=== PATIENT | male | born 1985 ===

== ENCOUNTER 2020-06-01 08:38 | Outpatient (REF) | payer BC, SELFPAY ==
--- NOTE | 2020-06-01 09:12 | XR_ITS ---
EXAMINATION: XR ABDOMEN KUB CLINICAL INDICATION: Pain on left side COMPARISON: CT abdomen pelvis 07/14/2019. TECHNIQUE: AP view of the abdomen. FINDINGS: No discrete renal calcifications or calcifications along the course of the ureters are seen on this exam. The bowel gas pattern is nonobstructive. No acute osseous abnormality. XR/XR KUB IMPRESSION: No abnormal calcifications are seen.
[2020-06-01 09:15] LABS: MANUAL DIFF FLAG NO
[2020-06-01 09:16] LABS: Basophils Percent Auto 0.3 % (0-2); Eosinophils Percent Auto 0.3 % (0-4); Hematocrit 47.2 % (42-52); Imm Gran Abs Auto 0.03 X10*3/uL (0.00-0.03); Imm Gran Pct Auto 0.4 % (0.0-0.4); Lymphocytes Absolute Auto 2.4 X10*3/uL (1.2-4.9); Lymphocytes Percent Auto 31.5 % (20-40); Mean Corpuscular HGB Conc 31.8 g/dl (31.0-36.0); Mean Corpuscular Hemoglobin 27.4 pg (27.0-33.0); Mean Corpuscular Volume 86.3 fL (80-98); Mean Platelet Volume 9.8 fL (9.4-12.4); Monocytes Absolute Auto 0.6 X10*3/uL (0.1-1.2); Monocytes Percent Auto 7.9 % (2-11); Neutrophils Absolute Auto 4.6 X10*3/uL (2.0-8.3); Neutrophils Percent Auto 59.6 % (45-73); Platelet Count 281 X10*3/uL (160-400); Red Blood Count 5.47 X10*6/uL (4.60-5.80); Red Cell Distribution Width 13.4 % (11.0-16.0); White Blood Count 7.6 X10*3/uL (4.8-10.8)
[2020-06-01 09:40] LABS: Alanine Aminotransferase 72 U/L (0-40); Albumin Level 4.6 g/dL (3.5-5.0); Alkaline Phosphatase 91 U/L (39-117); Anion Gap 12 (12-20); Aspartate Amino Transferase 35 U/L (5-37); Bilirubin Total 0.6 mg/dL (0.0-1.0); Blood Urea Nitrogen 11 mg/dL (9-16); Calcium 8.2 mg/dL (8.4-10.2); Carbon Dioxide 25 mmol/L (22-29); Chloride 106 mmol/L (96-108); Cholesterol 218 mg/dL; Estimated Glomerular Filt Rate > 60; Glucose Fasting 104 mg/dL (60-99); HDL Cholesterol 38 mg/dL; LDL Cholesterol Calculated 161 mg/dl; Potassium 4.3 mmol/l (3.3-5.1); Sodium 139 mmol/L (135-145); Total Protein 8.1 g/dL (6.5-8.0); Triglycerides 97 mg/dL
[2020-06-01 10:00] LABS: TSH reflex Free T4 0.94 mIU/mL (0.32-4.0)
== END 2020-06-01 08:39 | disposition home or self-care (01) ==
LOC: HO.LAB 08:38
PROVIDERS: PCP Internal Medicine; Visit Provider Internal Medicine
DX: R10.9 Unspecified abdominal pain (principal); Z00.00 Encounter for general adult medical examination without abnormal findings; R03.0 Elevated blood-pressure reading, without diagnosis of hypertension; E66.01 Morbid (severe) obesity due to excess calories; Z68.41 Body mass index [BMI] 40.0-44.9, adult
CPT/HCPCS: 36415; 74018; 80053; 80061; 84443; 85025

== ENCOUNTER 2020-06-03 17:33 | Outpatient (REF) | payer BC, SELFPAY ==
[2020-06-03 17:45] LABS: Glucose Urine UA NEG (NEG); Leukocyte Esterase Urine NEG (NEG); Nitrite Urine NEG (NEG); Specific Gravity - Urine >= 1.030 (1.005-1.025); Urine Blood NEG (NEG); Urine Ketones NEG (NEG); Urine Protein NEG (NEG-TRACE)
[2020-06-03 17:50] LABS: Appearance Urine CLEAR; Color Urine YELLOW
== END 2020-06-03 17:34 | disposition home or self-care (01) ==
LOC: HO.LNP 17:33
PROVIDERS: Visit Provider Internal Medicine
DX: R10.9 Unspecified abdominal pain (principal); Z00.00 Encounter for general adult medical examination without abnormal findings; R03.0 Elevated blood-pressure reading, without diagnosis of hypertension; E66.01 Morbid (severe) obesity due to excess calories; Z68.41 Body mass index [BMI] 40.0-44.9, adult
CPT/HCPCS: 81003

== ENCOUNTER 2020-07-09 09:36 | Outpatient (REF) | payer BC, SELFPAY | END 2020-07-09 09:37 | disposition home or self-care (01) | LOC: HO.LAB 09:36 | PROVIDERS: Visit Provider Internal Medicine | DX: Z20.828 Contact with and (suspected) exposure to other viral communicable diseases (principal) | CPT/HCPCS: C9803; U0003 ==

== ENCOUNTER 2020-08-23 10:56 | Outpatient (REF) | payer BC, SELFPAY | END 2020-08-23 10:57 | disposition home or self-care (01) | LOC: HO.LAB 10:56 | PROVIDERS: PCP Internal Medicine; Visit Provider Internal Medicine | DX: Z20.822 Contact with and (suspected) exposure to COVID-19 (principal) | CPT/HCPCS: 36415; C9803; U0003 ==

== ENCOUNTER 2020-09-02 14:05 | Outpatient (REF) | payer BC, SELFPAY | END 2020-09-02 14:06 | disposition home or self-care (01) | LOC: HO.LAB 14:05 | PROVIDERS: Visit Provider Internal Medicine | DX: Z20.822 Contact with and (suspected) exposure to COVID-19 (principal) | CPT/HCPCS: 36415; C9803; U0003; U0005 ==

== ENCOUNTER 2020-12-16 03:30 | Emergency (ER) | payer BC, SELFPAY ==
--- NOTE | ~2020-12-16 | CT_ITS ---
EXAMINATION: CT ABDOMEN AND PELVIS WITHOUT CONTRAST CLINICAL INFORMATION: Left flank pain, history of kidney stones COMPARISON: 07/14/2019 TECHNIQUE: Multidetector volumetric imaging was performed from the superior aspect of the liver through the pubic symphysis. Sagittal and coronal reformatted images were obtained on the technologist's workstation. This CT examination was performed using dose optimization techniques as appropriate, variously including the following: *Automated exposure control *Adjustment of mA and/or kV according to patient size (this includes techniques or standardized protocols for targeted exams where dose is matched to indication/reason for exam; i.e. extremities or head) *Use of iterative reconstruction technique DLP: 1194 mGy-cm FINDINGS: LUNG BASES: The visualized lung bases are unremarkable. LIVER, GALLBLADDER, AND BILIARY TREE: The liver demonstrates hypoattenuation consistent with steatosis. No biliary ductal dilatation is present. There is suggestion of cholelithiasis. PANCREAS: Unremarkable. SPLEEN: Unremarkable. ADRENAL GLANDS: Unremarkable. KIDNEYS AND URETERS: There is a 3 mm calculus at the left ureterovesicular junction with mild hydronephrosis. Several scattered punctate calculi are present in the left kidney. Tiny calculus is also noted in the lower right kidney, without right-sided hydronephrosis. BLADDER: Unremarkable. GASTROINTESTINAL TRACT: The small and large bowel are unremarkable. The appendix is unremarkable. No free fluid or free air is seen. ABDOMINAL WALL: No significant hernia is appreciated. LYMPH NODES: Normal. VASCULAR: Unremarkable. PELVIC VISCERA: Unremarkable. OSSEOUS STRUCTURES: Unremarkable. CT/CT abdomen pelvis wo con IMPRESSION: 1. Left ureterovesicular junction calculus measuring 3 mm with mild hydronephrosis. 2. Tiny bilateral renal calculi. 3. Possible gallstones, which could be better assessed with ultrasound. 4. Hepatic steatosis.
[2020-12-16 04:10] VITALS: BP 154/101; PULSE 101; RESP 18; TEMP 37.1; O2SAT 98; BMI 45.0
--- NOTE | 2020-12-16 04:44 | ED.ABDPAIN ---
HPI - Abdominal Pain General Chief Complaint: Abdominal Pain Stated Complaint: left side abdominal pain Time Seen by Provider: 12/16/20 04:38 Source: patient Mode of arrival: ambulatory Limitations: no limitations History of Present Illness HPI narrative: Patient comes to the emergency room complaining of left flank pain radiating towards the groin and left lower quadrant. Patient states that it started approximately 3 hours ago. Patient states that his urine looks darker. Patient has had kidney stones in the past and states that the pain is very similar. Patient denies vomiting, no diarrhea, complaining of slight nausea, no fever chills, no dysuria. MD elicited complaint: flank pain Related Data Previous Rx's Medication Instructions Recorded albuterol sulfate 90 mcg/actuation 1 inh INHALATION QID PRN 30 Days 09/03/20 aerosol inhaler #8.5 g ketorolac 10 mg PO TID PRN 5 Days #10 tab 12/16/20 ondansetron HCl [Zofran] 4 mg PO Q6H PRN #14 tab 12/16/20 oxycodone-acetaminophen [Percocet] 1 tab PO Q6H PRN #10 tab 12/16/20 prednisone 20 mg PO DAILY #4 tab 12/16/20 tamsulosin 0.4 mg PO DAILY #14 cap 12/16/20 Allergies Allergy/AdvReac Type Severity Reaction Status Date / Time No Known Allergies Allergy Verified 12/16/20 04:51 Review of Systems Review of Systems Constitutional : No Weight loss, No Fever, No Chills, No Night Sweats, No Fatigue, No Malaise ENT/Mouth : No Hearing loss, No Ear Pain, No Nasal Congestion, No Sinus Pain, No Hoarseness, No sore throat, No Rhinorrhea, No Swallowing Difficulty Eyes: No Eye Pain, No Swelling, No Redness, No Foreign Body, No Discharge, No Vision Changes Cardiovascular : No Chest Pain, No SOB, No Dyspnea on Exertion, No Orthopnea, No Edema, No Palpitations Respiratory : No Cough, No Sputum, No Wheezing, No Smoke Exposure, No Dyspnea Gastrointestinal : Mild Nausea, No Vomiting, No Diarrhea, No Constipation, No abdominal Pain, No Hematochezia, No Melena, complaining flank pain on the left side Genitourinary :no Dysuria, No Urinary Frequency, No Hematuria, No Urinary Incontinence, No Urgency, No Flank Pain, No Urinary Flow Changes, No Hesitancy Musculoskeletal : No joint pain, No Myalgias, No Joint Swelling Skin : No Skin Lesions, No rash Neuro : No Weakness, No Numbness, No Paresthesias, No Loss of Consciousness, No Dizziness, No Headache Psych : No Anxiety/Panic, No Depression, No SI/HI/AH/VH, No Social Issues, Heme/Lymph: No Bruising, No Bleeding,No Lymphadenopathy Endocrine : No Polyuria, No Polydipsia, No Temperature Intolerance Physical Exam Vital Signs: Vital Signs: Last Vital Signs Temp 98.8 F 12/16/20 04:10 Pulse 88 12/16/20 06:42 Resp 17 12/16/20 06:42 BP 144/90 H 12/16/20 06:42 Pulse Ox 98 12/16/20 06:42 Body Mass Index 45.0 Appearance: Alert. Oriented X3. No acute distress. Eyes: Pupils equal, round and reactive to light. ENT: Pharynx normal. Neck: Normal inspection. Neck supple. No lymph nodes noted. No crepitus CVS: Normal heart rate and rhythm. Pulses normal. Normal S1 and S2 Respiratory: No respiratory distress. Breath sounds normal. No Wheezing. No rales Abdomen: Soft and nontender. No rigidity. No distention. Back: No thoracic or lumbar pain, positive CVA tenderness on the left side Skin: Skin warm and dry. Normal skin color. Normal skin turgor. Extremities: No lower extremity edema. No lower extremity edema. No Lacerations. No Rash Neuro: Oriented X 3. No motor deficit. No sensory deficit. Moving all extermities. No slurred speech. Course Course Course Narrative: I discussed with the patient that he does have a 3 mm kidney stone. Patient instructed to follow-up with his primary care physician and Urology. No UTI MDM - Abdominal Pain Lab Data Result diagrams: 12/16/20 04:47 12/16/20 04:47 Labs: Lab Results 12/16/20 12/16/20 12/16/20 Range/Units 04:47 04:47 04:47 WBC 8.7 (4.8-10.8) X10*3/uL RBC 5.33 (4.60-5.80) X10*6/uL Hgb 14.7 (14.0-18.0) g/dl Hct 45.6 (42-52) % MCV 85.6 (80-98) fL MCH 27.6 (27.0-33.0) pg MCHC 32.2 (31.0-36.0) g/dl RDW 13.7 (11.0-16.0) % Plt Count 276 (160-400) X10*3/uL MPV 10.0 (9.4-12.4) fL Immature Gran % (Auto) 0.5 H (0.0-0.4) % Neut % (Auto) 65.1 (45-73) % Lymph % (Auto) 25.1 (20-40) % [place] % (Auto) 8.6 (2-11) % Eos % (Auto) 0.5 (0-4) % Baso % (Auto) 0.2 (0-2) % Lymph # (Auto) 2.2 (1.2-4.9) X10*3/uL [place] # (Auto) 0.8 (0.1-1.2) X10*3/uL Eos # (Auto) 0.0 (0.0-0.4) X10*3/uL Baso # (Auto) 0.0 (0.0-0.2) X10*3/uL Abs Immat Gran (auto) 0.04 H (0.00-0.03) X10*3/uL Absolute Neuts (auto) 5.7 (2.0-8.3) X10*3/uL Absolute Nucleated RBC 0.000 (0.0-0.012) X10*3/uL Nucleated RBC % (auto) 0.0 (0.0-0.2) /100WBC Hold Blue Top SEE NOTE Sodium 140 (135-145) mmol/L Potassium 4.6 (3.3-5.1) mmol/L Chloride 108 (96-108) mmol/L Carbon Dioxide 24 (22-29) mmol/L Anion Gap 13 (12-20) BUN 16 (9-16) mg/dL Creatinine 0.86 (0.5-1.4) mg/dL Estim Creat Clear Calc 167.3 Estimated GFR > 60 Random Glucose 118 H (60-115) mg/dL Calcium 8.7 D (8.4-10.2) mg/dL Total Bilirubin 0.2 (0.0-1.0) mg/dL AST 27 (5-37) U/L ALT 61 H (0-40) U/L Alkaline Phosphatase 74 (39-117) U/L Total Protein 7.6 (6.5-8.0) g/dL Albumin 4.3 (3.5-5.0) g/dL Lipase (8-78) U/L 12/16/20 Range/Units 04:48 WBC (4.8-10.8) X10*3/uL RBC (4.60-5.80) X10*6/uL Hgb (14.0-18.0) g/dl Hct (42-52) % MCV (80-98) fL MCH (27.0-33.0) pg MCHC (31.0-36.0) g/dl RDW (11.0-16.0) % Plt Count (160-400) X10*3/uL MPV (9.4-12.4) fL Immature Gran % (Auto) (0.0-0.4) % Neut % (Auto) (45-73) % Lymph % (Auto) (20-40) % [place] % (Auto) (2-11) % Eos % (Auto) (0-4) % Baso % (Auto) (0-2) % Lymph # (Auto) (1.2-4.9) X10*3/uL [place] # (Auto) (0.1-1.2) X10*3/uL Eos # (Auto) (0.0-0.4) X10*3/uL Baso # (Auto) (0.0-0.2) X10*3/uL Abs Immat Gran (auto) (0.00-0.03) X10*3/uL Absolute Neuts (auto) (2.0-8.3) X10*3/uL Absolute Nucleated RBC (0.0-0.012) X10*3/uL Nucleated RBC % (auto) (0.0-0.2) /100WBC Hold Blue Top Sodium (135-145) mmol/L Potassium (3.3-5.1) mmol/L Chloride (96-108) mmol/L Carbon Dioxide (22-29) mmol/L Anion Gap (12-20) BUN (9-16) mg/dL Creatinine (0.5-1.4) mg/dL Estim Creat Clear Calc Estimated GFR Random Glucose (60-115) mg/dL Calcium (8.4-10.2) mg/dL Total Bilirubin (0.0-1.0) mg/dL AST (5-37) U/L ALT (0-40) U/L Alkaline Phosphatase (39-117) U/L Total Protein (6.5-8.0) g/dL Albumin (3.5-5.0) g/dL Lipase 32 (8-78) U/L Imaging Data CT scan - abdomen: Radiologist's impression: FINDINGS: LUNG BASES: The visualized lung bases are unremarkable. LIVER, GALLBLADDER, AND BILIARY TREE: The liver demonstrates hypoattenuation consistent with steatosis. No biliary ductal dilatation is present. There is suggestion of cholelithiasis. PANCREAS: Unremarkable. SPLEEN: Unremarkable. ADRENAL GLANDS: Unremarkable. KIDNEYS AND URETERS: There is a 3 mm calculus at the left ureterovesicular junction with mild hydronephrosis. Several scattered punctate calculi are present in the left kidney. Tiny calculus is also noted in the lower right kidney, without right-sided hydronephrosis. BLADDER: Unremarkable. GASTROINTESTINAL TRACT: The small and large bowel are unremarkable. The appendix is unremarkable. No free fluid or free air is seen. ABDOMINAL WALL: No significant hernia is appreciated. LYMPH NODES: Normal. VASCULAR: Unremarkable. PELVIC VISCERA: Unremarkable. OSSEOUS STRUCTURES: Unremarkable. CT/CT abdomen pelvis wo con IMPRESSION: 1. Left ureterovesicular junction calculus measuring 3 mm with mild hydronephrosis. 2. Tiny bilateral renal calculi. 3. Possible gallstones, which could be better assessed with ultrasound. 4. Hepatic steatosis. Discharge Plan Discharge Clinical Impression: Ureterolithiasis Patient Disposition: Home, Self-Care Instructions: Kidney Stones (ED) Additional Instructions: Please follow-up with your primary care physician tomorrow. If you have any worsening or new symptoms, please return to the emergency room or call 911 Prescriptions: New prednisone 20 mg tablet 20 mg PO DAILY Qty: 4 RF: 0 tamsulosin 0.4 mg capsule 0.4 mg PO DAILY Qty: 14 RF: 0 ondansetron HCl [Zofran] 4 mg tablet 4 mg PO Q6H PRN (Reason: nausea and vomiting) Qty: 14 RF: 0 ketorolac 10 mg tablet 10 mg PO TID PRN (Reason: pain) 5 Days Qty: 10 RF: 0 oxycodone-acetaminophen [Percocet] 5-325 mg tablet 1 tab PO Q6H PRN (Reason: pain) Qty: 10 RF: 0 No Action albuterol sulfate 90 mcg/actuation HFA aerosol inhaler 1 inh inhalation QID PRN (Reason: shortness of breath or wheezing) 30 Days Qty: 8.5 RF: 0 PMFSH Past Medical History Medical History (Updated 12/16/20 @ 06:52 by Mona Denney MD) Morbid obesity with BMI of 40.0-44.9, adult Nephrolithiasis Surgical History No pertinent past surgical history Family History Family History Father No problems noted. Mother Medical history unknown Social History Social History Smoking Status: Never smoker Advance Directives: No Advance Directives Information Provided: No
[2020-12-16 04:53] LABS: Basophils Percent Auto 0.2 % (0-2); Eosinophils Percent Auto 0.5 % (0-4); Hematocrit 45.6 % (42-52); Hemoglobin 14.7 g/dl (14.0-18.0); Imm Gran Abs Auto 0.04 X10*3/uL (0.00-0.03); Imm Gran Pct Auto 0.5 % (0.0-0.4); Lymphocytes Absolute Auto 2.2 X10*3/uL (1.2-4.9); Lymphocytes Percent Auto 25.1 % (20-40); MANUAL DIFF FLAG NO; Mean Corpuscular HGB Conc 32.2 g/dl (31.0-36.0); Mean Corpuscular Hemoglobin 27.6 pg (27.0-33.0); Mean Corpuscular Volume 85.6 fL (80-98); Monocytes Absolute Auto 0.8 X10*3/uL (0.1-1.2); Monocytes Percent Auto 8.6 % (2-11); Neutrophils Absolute Auto 5.7 X10*3/uL (2.0-8.3); Neutrophils Percent Auto 65.1 % (45-73); Platelet Count 276 X10*3/uL (160-400); Red Blood Count 5.33 X10*6/uL (4.60-5.80); Red Cell Distribution Width 13.7 % (11.0-16.0); White Blood Count 8.7 X10*3/uL (4.8-10.8)
[2020-12-16] MEDS: ondansetron HCL 4 MG/2 ML VIAL IVPUSH (04:53)
[2020-12-16] MEDS: Ketorolac Tromethamine 30 MG/ML VIAL IVPUSH (04:53)
[2020-12-16 05:23] LABS: Lipase 32 U/L (8-78)
[2020-12-16 05:23] LABS: Alanine Aminotransferase 61 U/L (0-40); Albumin Level 4.3 g/dL (3.5-5.0); Alkaline Phosphatase 74 U/L (39-117); Anion Gap 13 (12-20); Aspartate Amino Transferase 27 U/L (5-37); Bilirubin Total 0.2 mg/dL (0.0-1.0); Blood Urea Nitrogen 16 mg/dL (9-16); Calcium 8.7 mg/dL (8.4-10.2); Carbon Dioxide 24 mmol/L (22-29); Chloride 108 mmol/L (96-108); Creatinine Clr Calc Pharmacy 167.3; Estimated Glomerular Filt Rate > 60; Glucose Random 118 mg/dL (60-115); Potassium 4.6 mmol/L (3.3-5.1); Sodium 140 mmol/L (135-145); Total Protein 7.6 g/dL (6.5-8.0)
[2020-12-16 06:42] VITALS: BP 144/90; PULSE 88; RESP 17; O2SAT 98
[2020-12-16 07:22] VITALS: BP 112/57; PULSE 86; RESP 16; TEMP 37.1; O2SAT 96
[2020-12-16] MEDS: Morphine Sulfate 2 MG/ML CARTRIDGE IVPUSH (07:23)
[2020-12-16 07:54] VITALS: BP 106/61
== END 2020-12-16 08:49 | disposition home or self-care (01) ==
PROVIDERS: Emergency Provider Emergency Medicine; PCP Internal Medicine
DX: N20.1 Calculus of ureter (principal); R10.32 Left lower quadrant pain; Z79.899 Other long term (current) drug therapy
CPT/HCPCS: 36415; 74176; 80053; 83690; 85025; 96374; 96375; 99284; J1885; J2270; J2405

== ENCOUNTER 2021-06-09 11:05 | Outpatient (REF) | payer BC, SELFPAY ==
[2021-06-09 11:57] LABS: Hematocrit 47.6 % (42.0-52.0); Hemoglobin 15.2 g/dl (14.0-18.0); Mean Corpuscular HGB Conc 31.9 g/dl (31.0-36.0); Mean Corpuscular Hemoglobin 27.4 pg (27.0-33.0); Mean Corpuscular Volume 85.9 fL (80.0-98.0); Mean Platelet Volume 10.2 fL (9.4-12.4); Platelet Count 296 X10*3/uL (160-400); Red Blood Count 5.54 X10*6/uL (4.60-5.80); Red Cell Distribution Width 13.7 % (11.0-16.0); White Blood Count 10.2 X10*3/uL (4.8-10.8)
[2021-06-09 12:04] LABS: Estimated Average Glucose 120 mg/dL; Hemoglobin A1c % 5.8 %
[2021-06-09 12:41] LABS: Alanine Aminotransferase 64 U/L (0-40); Albumin Level 4.5 g/dL (3.5-5.0); Alkaline Phosphatase 83 U/L (39-117); Anion Gap 13 (12-20); Aspartate Amino Transferase 27 U/L (5-37); Bilirubin Total 0.3 mg/dL (0.0-1.0); Blood Urea Nitrogen 12 mg/dL (9-16); Calcium 9.1 mg/dL (8.4-10.2); Carbon Dioxide 27 mmol/L (22-29); Chloride 104 mmol/L (96-108); Cholesterol 226 mg/dL; Estimated Glomerular Filt Rate > 60; Glucose Fasting 82 mg/dL (60-99); HDL Cholesterol 40 mg/dL; LDL Cholesterol Calculated 163 mg/dl; Potassium 4.6 mmol/L (3.3-5.1); Sodium 139 mmol/L (135-145); Total Protein 8.2 g/dL (6.5-8.0); Triglycerides 117 mg/dL
[2021-06-09 12:50] LABS: TSH reflex Free T4 2.36 uIU/mL (0.32-4.0)
== END 2021-06-09 11:06 | disposition home or self-care (01) ==
LOC: HO.LAB 11:05
PROVIDERS: PCP Internal Medicine; Visit Provider Physician Assistant
DX: E66.01 Morbid (severe) obesity due to excess calories (principal); Z13.1 Encounter for screening for diabetes mellitus; Z68.41 Body mass index [BMI] 40.0-44.9, adult; Z13.29 Encounter for screening for other suspected endocrine disorder
CPT/HCPCS: 36415; 80053; 80061; 83036; 84443; 85027

== ENCOUNTER 2021-11-18 17:28 | Emergency (ER) | payer BC, OTHER, SELFPAY ==
[2021-11-18 18:04] VITALS: BP 154/93; PULSE 119; RESP 20; TEMP 37.2; O2SAT 98; BMI 44.3
--- NOTE | 2021-11-18 20:38 | ED.SKABFB ---
HPI - Skin/Abscess/Foreign Bdy General Chief complaint: Skin/Abscess/Foreign Body Stated complaint: cyst in coccyzx area Time Seen by Provider: 11/18/21 20:38 Source: patient Mode of arrival: ambulatory Limitations: no limitations History of Present Illness HPI narrative: 36 y/o male with history of obesity & asthma presents to the ER for evaluation of an abscess on his upper right buttock that started about 4 days ago. He reports history of similar episode about a year ago that went away on its own. He reports the area is exquisitely tender, has been worsening over the last couple of days. He has been taking amoxicillin with no improvement in the pain, redness or swelling. He denies any drainage from the area. He denies any fever chills nausea or vomiting. He is not diabetic. He denies any trauma to the area. MD complaint: abscess/boil Onset (ago): day(s) (4) Tetanus up to date: yes Location: buttocks Severity: severe Severity scale (1-10): 9 Quality: aching Pain Consistency: constant Relieving factors: other (Lying on his stomach) Exacerbating factors: palpation and other (Sitting down) Context: none Treatments prior to arrival: antibiotic Related Data Previous Rx's Medication Instructions Recorded albuterol sulfate 90 mcg/actuation 1 inh INHALATION QID PRN 30 Days 07/02/21 aerosol inhaler #8.5 g cephalexin 500 mg capsule 500 mg PO Q6H 7 Days #28 cap 11/18/21 doxycycline monohydrate 100 mg 100 mg PO BID #14 cap 11/18/21 capsule hydrocodone 5 mg-acetaminophen 325 1 tab PO TID PRN #7 tab 11/18/21 mg tablet Allergies Allergy/AdvReac Type Severity Reaction Status Date / Time No Known Allergies Allergy Verified 06/09/21 10:33 Review of Systems Review of Systems: Constitutional: No Fever, No Chills Cardiovascular: No Chest Pain, No SOB Gastrointestinal: No Nausea, No Vomiting, No Diarrhea, No abdominal Pain Musculoskeletal: No joint pain, No Myalgias Skin: + Skin Lesions, No rash, +redness Neuro: No Weakness, No Numbness, No Dizziness, No Headache Psych: + Anxiety/Panic, No Depression Heme/Lymph: No Bruising, No Lymphadenopathy Endocrine: No Polyuria, No Polydipsia PMFSH Past Medical History Medical History Morbid obesity with BMI of 40.0-44.9, adult Nephrolithiasis Surgical History No pertinent past surgical history Family History Family History (Updated 06/09/21 @ 10:35 by Dell Gold PA-C) Father No problems noted. Mother Medical history unknown Maternal Grandfather CAD (coronary artery disease) Social History Social History (Updated 06/09/21 @ 10:35 by Dell Gold PA-C) Housing: House Alcohol intake: never Patient Tobacco Use Status: Never used Tobacco Tobacco use type: Cigarette e-Cigarette/Vaping Use: Never Used Second Hand Smoke Exposure: No Advance Directives: No Advance Directives Information Provided: No Current occupational status: employed Physical Exam Vital Signs: Vital Signs: Last Vital Signs Temp 98.9 F 11/18/21 18:04 Pulse 119 H 11/18/21 18:04 Resp 20 11/18/21 18:04 BP 154/93 H 11/18/21 18:04 Pulse Ox 98 11/18/21 18:04 BMI result Body Mass Index 44.3 Appearance: Alert. Oriented X3. No acute distress. HEENT: normal inspection CVS: Normal heart rate and rhythm. Pulses normal. Respiratory: No respiratory distress. Skin: Skin warm and dry. Normal skin color. Normal skin turgor. No rashes. Buttocks: Right upper gluteal cleft with a 4 cm fluctuant and erythematous area consistent with a pilonidal cyst. Exquisitely tender. Mild surrounding erythema as well. No extension down to the rectum. Extremities: Normal inspection x4, normal range of motion. Neuro: Oriented X 3. Grossly normal, nonfocal Course Course Course Narrative: 36-year-old male presents to the ER for evaluation of a pilonidal cyst. This is the 2nd time he has had it but he has never required incision and drainage before. At this time area is fluctuant and erythematous, amenable to drainage. Patient agrees with plan. Discussed management and follow-up with the surgeon and he expressed understanding. Reevaluation(s) Reevaluation #1: Patient tolerated procedure well. Will discharge with empiric antibiotics for mild surrounding cellulitis. He will follow-up with Dr. Neely as for further evaluation. Procedures Abscess I/D Site: other (gluteal cleft) Side (if applicable): right Local Anesthetic: lidocaine 2% Amount of anesthesia used (mL): 2 Technique: incised with blade Irrigation: Yes Packing used?: iodoform Complications: pain and bleeding Critical Care Time Critical Care Time Critical Care Time: No Discharge Plan Discharge Clinical Impression: Pilonidal cyst Patient Disposition: Home, Self-Care Instructions: Pilonidal Cyst (ED), Pilonidal Cyst Excision (DC) Additional Instructions: Take the prescribed antibiotics as directed. Use warm compresses to the area several times per day. You can take out the packing in 2 days time, if your not comfortable doing this at home he can come back to the emergency room for us to do it and re-evaluate the area. Recommend following up with a general surgeon for evaluation of pilonidal cyst removal. This will prevent recurrence. If you develop new or worsening symptoms call 911 or come back to the ER for further evaluation. Prescriptions: New doxycycline monohydrate 100 mg capsule 100 mg PO BID Qty: 14 0RF cephalexin 500 mg capsule 500 mg PO Q6H 7 Days Qty: 28 0RF hydrocodone-acetaminophen 5-325 mg tablet 1 tab PO TID PRN (Reason: pain) Qty: 7 0RF No Action albuterol sulfate 90 mcg/actuation HFA aerosol inhaler 1 inh inhalation QID PRN (Reason: shortness of breath or wheezing) 30 Days Qty: 8.5 3RF Referrals: Alex Tavarez MD [Physician] - 1 week (Recurrent pilonidal cyst) Stand Alone Forms: Work/School Release
[2021-11-18] MEDS: Lidocaine HCl 2 % MPF 5 ML VIAL INFILTRATI (21:01)
[2021-11-18] MEDS: oxyCODONE HCl Immed Release 5 MG TABLET PO (21:01)
== END 2021-11-18 22:02 | disposition home or self-care (01) ==
PROVIDERS: Emergency Provider Emergency Medicine Emergency Medical Services; PCP Internal Medicine
DX: L05.91 Pilonidal cyst without abscess (principal); Z79.899 Other long term (current) drug therapy
CPT/HCPCS: 10060; 99284

== ENCOUNTER → 2021-12-01 15:48 | Outpatient (BNVA) | payer BC, SELFPAY | PROVIDERS: PCP Internal Medicine; Referring Provider Internal Medicine; Visit Provider Surgery | DX: Z13.89 Encounter for screening for other disorder (principal) ==

== ENCOUNTER 2021-12-19 10:51 | Day surgery (SDC) | payer BC, SELFPAY ==
[2021-12-15 14:45] VITALS: BMI 45.4
--- NOTE | 2021-12-17 13:21 | P.CONAN_ITS ---
Documented by User: Chel Carlos NP 12/17/21 13:21 HPI - Anesthesia Eval Consult details Narrative: 36yo M for Excision Pilonidal Cyst on the Sacrococygeal PMFSH Active Problems Active Problems: All Active Problems (Updated 12/01/21 @ 15:51 by Alex Tavarez MD) Sacrococcygeal pilonidal cyst (Acute) Blood pressure elevated without history of HTN (Acute) Screening for hypothyroidism (Acute) Screening for diabetes mellitus (DM) (Acute) Asthma (Acute) Encounter for annual physical exam (Acute) Coccyx pain (Acute) Cough (Acute) Morbid obesity with BMI of 40.0-44.9, adult (Acute) Past Medical History Medical History (Updated 12/01/21 @ 15:51 by Alex Tavarez MD) Morbid obesity with BMI of 40.0-44.9, adult Nephrolithiasis Sacrococcygeal pilonidal cyst Family History Family History Father No problems noted. Mother Medical history unknown Maternal Grandfather CAD (coronary artery disease) Surgical History Surgical History No pertinent past surgical history Social History Social History Housing: House Alcohol intake: never Patient Tobacco Use Status: Never used Tobacco Tobacco use type: Cigarette e-Cigarette/Vaping Use: Never Used Second Hand Smoke Exposure: No Use of substances other than those prescribed or required for medical reasons: No Are you DNR?: No Advance Directives: No Advance Directives Information Provided: Yes Current occupational status: employed Meds Allergies Allergy/AdvReac Type Severity Reaction Status Date / Time No Known Allergies Allergy Verified 12/19/21 11:00 Exam Exam Date and Time: December 17, 2021 1321 Height,Weight and Vital Signs: Height 5 ft 9 in Weight 139.706 kg Assessment and Plan Assessment Anesthesia Assessment: Chart Reviewed Documented by User: Hugo Burrows MD 12/19/21 12:04 [facility] Past Medical History Medical History (Updated 12/01/21 @ 15:51 by Alex Tavarez MD) Morbid obesity with BMI of 40.0-44.9, adult Nephrolithiasis Sacrococcygeal pilonidal cyst Family History Family History Father No problems noted. Mother Medical history unknown Maternal Grandfather CAD (coronary artery disease) Family history of problems with anesthesia: No Surgical History Surgical History No pertinent past surgical history History of Problems with Anesthesia: No Social History Social History Housing: House Alcohol intake: never Patient Tobacco Use Status: Never used Tobacco Tobacco use type: Cigarette e-Cigarette/Vaping Use: Never Used Second Hand Smoke Exposure: No Use of substances other than those prescribed or required for medical reasons: No Are you DNR?: No Advance Directives: No Advance Directives Information Provided: Yes Current occupational status: employed Meds Allergies Allergy/AdvReac Type Severity Reaction Status Date / Time No Known Allergies Allergy Verified 12/19/21 11:00 Exam Airway Mallampati Class: I TM Dist: >3cm Neck ROM: Full Loose/Missing/Broken Teeth: No Heart: ok Lungs: ok Assessment and Plan Final Anesthetic Review Family History of Problems with Anesthesia: No History of Problems with Anesthesia: No NPO: Yes ASA Class: III Final Preanesthetic Review: No Changes in Pt Med Stat, Meds/Allgs Chart Reviewed, Consent Obtained/Reviewed and Anes Risks/Benef Reviewed Patient Risk: Intermediate Procedure Risk: Low Anesthetic Plan Anesthetic Plan: GA and Agree w/ Assess. and Plan Disposition: Standard PACU
[2021-12-19] VITALS (7 sets, daily range): BP systolic 127–146; BP diastolic 85–110; PULSE 88–105; RESP 16; TEMP 36.6–36.9; O2SAT 94–98; BMI 45.4
[2021-12-19] MEDS: Lactated Ringers 1,000 ML 100 ML IVCONT (11:22)
--- NOTE | 2021-12-19 11:22 | MHC.SHP ---
Pre-Procedural Eval Section A Date of Service: 12/19/21 Section B Chief Complaint: Pilonidal cyst without abscess Details of Present Illness: Recurrent swelling, drainage in the area of the tailbone region with a pilonidal cyst Relevant Family History (Specify if Yes): No Relevant Social History: None Present Medications: see Short Stay Collaborative assessment Medical History: Significant History ( diabetes, hypertension, asthma, obesity) History of Previous Operations: No relevant previous surgery Allergies: Allergies Allergy/AdvReac Type Severity Reaction Status Date / Time No Known Allergies Allergy Verified 12/19/21 11:00 Review of Systems Sugical H&P ROS: Negative: Constitution, Cardiovascular, Respiratory, Neurological, Psychiatric, Hem-Onc, Allergic/Immunologic, Gastrointestinal, Genitourinary, Musculoskeletal, Integumentary, Endocrine and Eyes/Ears/Nose/Throat Exam Surgical H&P Exam: Normal: HEENT, Normal: Heart, Normal: Lungs, Normal: Extremities, Normal: Abdomen, Normal: Skin and Normal: Neurological Exam Comment: pilonidal cyst, sacrococcygeal area Plan Diagnosis/Plan: Unchanged I have reviewed the history and physical and performed a pertinent physical examination on my patient. No changes have occurred unless specified.
--- NOTE | 2021-12-19 13:17 | P.OP_ITS ---
Operative Note Operative Note Date of Service: 12/19/21 Narrative: Preop diagnosis: pilonidal cyst, sacrococcygeal area Postop diagnosis: Pilonidal cyst, sacrococcygeal area Procedure: Excision of pilonidal cyst, sacrococcygeal area Surgeon: Alex Tavarez MD The patient is a 36-year-old male, morbidly obese, with note of a recurrent area of pain, swelling and drainage in the sacrococcygeal aspect. There was an induration just to the left of midline and what appears to be midline pits. This was consistent with a pilonidal cyst. He understood the technique of excision. He was aware of the risks, benefits, and alternatives. He was brought to the operating room and placed in prone position under general anesthesia via laryngeal mask airway. Buttocks were retracted with wide tape laterally. The sacrococcygeal area was prepped and draped in the usual sterile fashion. A surgical time-out was done I infiltrated the planned line of incision using lidocaine 1%. I made an elliptical incision skin using blade 15 around the area of induration all the way inferiorly to the midline pits. This was carried down through the full- thickness of skin subcutaneous fat with electrocautery. I excised the entire indurated area and midline pits. The excised area was about 6.5 cm long and about 3 cm wide. I undermined both sides to create a flap of skin and thick subcutaneous tissue and allow reapposition without tension . There was note of significant oozing and I had to cauterize all oozing areas. Once hemostasis was ensured, proceeded to reapposed deep subcutaneous layer with Dexon 3-0 interrupted sutures. Skin closure was achieved with thick full-thi ckness simple interrupted nylon 2-0 sutures alternating with vertical mattress nylon 2-0 sutures. I then infiltrated the area with Marcaine 0.5% for postop analgesia. Dressings were applied. The procedure was completed . The patient tolerated procedure well. There were no complication noted. Initial and final counts of sponges and instruments were correct. Estimated blood loss about says 50 cc The patient was extubated without difficulty and transferred to the recovery room with stable vital signs.
[2021-12-19] MEDS: oxyCODONE HCl Immed Release 5 MG TABLET 10 MG PO (13:53)
[2021-12-19] MEDS: Acetaminophen 325 MG TABLET 975 MG PO (13:54)
== END 2021-12-19 14:50 | disposition home or self-care (01) ==
PROVIDERS: PCP Internal Medicine; Visit Provider Surgery
PROC: (CPT 11771; principal; 2021-12-19 12:40)
DX: L05.91 Pilonidal cyst without abscess (principal); E66.01 Morbid (severe) obesity due to excess calories; Z68.42 Body mass index [BMI] 45.0-49.9, adult
CPT/HCPCS: 11771; 88304; J0690; J1100; J1885; J2250; J2405; J3010

== ENCOUNTER → 2022-01-02 13:44 | Outpatient (BNVA) | payer BC, SELFPAY | PROVIDERS: PCP Internal Medicine; Visit Provider Surgery | DX: Z13.89 Encounter for screening for other disorder (principal) ==

== ENCOUNTER 2022-06-10 16:17 | Outpatient (REF) | payer BC, SELFPAY ==
[2022-06-10 16:52] LABS: Hematocrit 43.3 % (42.0-52.0); Hemoglobin 14.3 g/dl (14.0-18.0); Mean Corpuscular Hemoglobin 27.3 pg (27.0-33.0); Mean Corpuscular Volume 82.8 fL (80.0-98.0); Mean Platelet Volume 10.2 fL (9.4-12.4); Platelet Count 263 X10*3/uL (160-400); Red Blood Count 5.23 X10*6/uL (4.60-5.80); Red Cell Distribution Width 13.9 % (11.0-16.0); White Blood Count 9.1 X10*3/uL (4.8-10.8)
[2022-06-10 17:30] LABS: Alanine Aminotransferase 46 U/L (0-40); Albumin Level 4.6 g/dL (3.5-5.0); Alkaline Phosphatase 91 U/L (39-117); Anion Gap 16 (12-20); Aspartate Amino Transferase 25 U/L (5-37); Bilirubin Total 0.7 mg/dL (0.0-1.0); Blood Urea Nitrogen 9 mg/dL (9-16); Calcium 8.9 mg/dL (8.4-10.2); Carbon Dioxide 24 mmol/L (22-29); Chloride 102 mmol/L (96-108); Cholesterol 213 mg/dL; Estimated Glomerular Filt Rate > 60; Glucose Fasting 75 mg/dL (60-99); HDL Cholesterol 34 mg/dL; LDL Cholesterol Calculated 165 mg/dl; Potassium 4.4 mmol/L (3.3-5.1); Sodium 138 mmol/L (135-145); Total Protein 8.1 g/dL (6.5-8.0); Triglycerides 73 mg/dL
== END 2022-06-10 16:18 | disposition home or self-care (01) ==
LOC: HO.LAB 16:17
PROVIDERS: Visit Provider Physician Assistant
DX: E78.9 Disorder of lipoprotein metabolism, unspecified (principal); Z13.1 Encounter for screening for diabetes mellitus; Z13.29 Encounter for screening for other suspected endocrine disorder
CPT/HCPCS: 36415; 80053; 80061; 84443; 85027

== ENCOUNTER 2023-05-29 21:33 | Emergency (ER) | payer BC, SELFPAY ==
--- NOTE | ~2023-05-29 | CT_ITS ---
EXAMINATION: CT ABDOMEN AND PELVIS WITHOUT CONTRAST CLINICAL INFORMATION: Left flank pain with history of stones. COMPARISON: 12/16/2020 TECHNIQUE: Multidetector volumetric imaging was performed from the superior aspect of the liver through the pubic symphysis. Sagittal and coronal reformatted images were obtained on the technologist's workstation. This CT examination was performed using dose optimization techniques as appropriate, variously including the following: *Automated exposure control *Adjustment of mA and/or kV according to patient size (this includes techniques or standardized protocols for targeted exams where dose is matched to indication/reason for exam; i.e. extremities or head) *Use of iterative reconstruction technique DLP: 1158 mGy-cm FINDINGS: LUNG BASES: The visualized lung bases are unremarkable. LIVER, GALLBLADDER, AND BILIARY TREE: Relative hypoattenuation of the hepatic parenchyma is consistent with steatosis. Focal fatty sparing is noted around the gallbladder fossa and at the hepatic segment 1. No appreciable hepatic lesions. Liver is borderline enlarged, measuring 20 cm craniocaudal. Hepatic contour is normal. Gallstones are suspected in the gallbladder. No appreciable gallbladder wall thickening or surrounding pericholecystic fluid. No biliary ductal dilatation. PANCREAS: Unremarkable. SPLEEN: Unremarkable. ADRENAL GLANDS: Unremarkable. KIDNEYS AND URETERS: Within a right lower renal pole calyx, there is a small irregular calculus measuring 4 mm in diameter, possibly a cluster of 2 adjacent calculi. No additional renal calculi are identified. The kidneys are normal in size, shape, and attenuation. No there is there is mild left hydroureteronephrosis with periureteral fat stranding due to a 4.5 mm calculus at the left distal ureter at the ureterovesical junction. No additional ureteral calculi. BLADDER: Unremarkable. GASTROINTESTINAL TRACT: Stomach, small bowel, and colon are normal in caliber. No bowel wall thickening or surrounding inflammatory changes. Appendix is normal. No intraperitoneal free fluid or free air. ABDOMINAL WALL: No significant hernia is appreciated. LYMPH NODES: Normal. VASCULAR: Unremarkable. PELVIC VISCERA: Unremarkable. OSSEOUS STRUCTURES: There is transitional anatomy at the lumbosacral junction with a partially lumbarized S1. No acute osseous findings. Mild osteoarthritis in the hips and SI joints. There is a prominent left paracentral disc protrusion at L5-S1 which narrows the central canal. CT/CT abdomen pelvis wo IV con IMPRESSION: 1. A 4.5 mm calculus at the left distal ureter produces mild left hydroureteronephrosis. 2. A 4 mm nonobstructing renal calculus in the right lower renal pole. 3. Hepatic steatosis. 4. Cholelithiasis without evidence of acute cholecystitis.
[2023-05-29 21:36] VITALS: BP 193/115; PULSE 112; RESP 20; TEMP 36.5; O2SAT 95; BMI 43.3
--- NOTE | 2023-05-29 22:01 | ED.MALEGU ---
HPI - Male Genitourinary General Chief complaint: Urogenital-Male Stated complaint: lower back pain ? kidney stone Time Seen by Provider: 05/29/23 22:01 Source: patient Mode of arrival: ambulatory Limitations: no limitations History of Present Illness HPI Narrative: Patient history of kidney stone last episode was in 2020 comes here for pain in the left flank area for last 1 week off and on got worse prior to arrival with radiating to the left testicle with nausea and vomiting pain sharp in character had dark color urine earlier today no fever no chills Related Data Previous Rx's Medication Instructions Recorded morphine 15 mg immediate release 15 mg PO Q8H PRN pain #15 tabs 05/30/23 tablet ondansetron 4 mg disintegrating 4 mg PO Q6-8H PRN nausea and 05/30/23 tablet vomiting #14 tabs tamsulosin 0.4 mg capsule (Flomax) 0.4 mg PO BEDTIME #14 caps 05/30/23 Allergies Allergy/AdvReac Type Severity Reaction Status Date / Time No Known Allergies Allergy Verified 06/10/22 15:57 Review of Systems Review of Systems: Yes all other systems are reviewed and are negative [facility] Past Medical History Medical History Sacrococcygeal pilonidal cyst Nephrolithiasis Morbid obesity with BMI of 40.0-44.9, adult Surgical History History of excision of pilonidal cyst Family History Family History Father No problems noted. Mother Medical history unknown Maternal Grandfather CAD (coronary artery disease) Social History Social History Housing: House Alcohol intake: never Patient Tobacco Use Status: Never used Tobacco Tobacco use type: Cigarette Smoked in Last 30 Days: No e-Cigarette/Vaping Use: Never Used Second Hand Smoke Exposure: No Use of substances other than those prescribed or required for medical reasons: No Advance Directives: No Advance Directives Information Provided: No service: No Current occupational status: employed Current occupation: [employer] Cognitive needs: No Hearing needs: No Vision needs: No Physical Exam Vital Signs: Vital Signs: Last Vital Signs Temp 98.6 F 05/29/23 23:36 Pulse 105 H 05/29/23 23:36 Resp 16 05/29/23 23:36 BP 144/87 H 05/29/23 23:36 Pulse Ox 99 05/29/23 23:36 O2 Del Method Room Air 05/29/23 23:36 BMI result Body Mass Index 43.3 Appearance: Alert. Oriented X3. In moderate distress Eyes: No pallor or icterus ENT: Pharynx normal. Oral Mucosa moist Neck: Normal inspection. Neck supple. CVS: Normal heart rate and rhythm. Pulses normal. Respiratory: No respiratory distress. Equal air entry bilateral, no wheezing/rales/rhonchi Abdomen: Soft and nontender. Bowel sounds are present, no mass palpable, right CVA tenderness+ Skin: Skin warm and dry. Normal skin color. Normal skin turgor. Neuro: Oriented X 3. Medications Administered Discontinued Medications Generic Name Dose Route Start Last Admin Trade Name Freq PRN Reason Stop Dose Admin Dexamethasone Sodium Phosphate 10 mg 05/30/23 00:50 05/30/23 01:04 Dexamethasone Sod Phosphate 10 Mg/Ml Vial IVPUSH 05/30/23 00:51 10 mg ONCE ONE Administration Hydromorphone HCl 1 mg 05/29/23 23:38 05/29/23 23:42 Hydromorphone Hcl 1 Mg/Ml Syringe IVPUSH 05/29/23 23:39 1 mg ONCE ONE Administration Protocol Sodium Chloride 1,000 mls @ 999 mls/hr 05/29/23 22:03 05/29/23 23:35 Ns IV 05/29/23 23:03 Infused .Q1H1M ONE Infusion Ketorolac Tromethamine 30 mg 05/29/23 22:02 05/29/23 22:15 Ketorolac Tromethamine 30 Mg/Ml Vial IVPUSH 05/29/23 22:03 30 mg ONCE ONE Administration Morphine Sulfate 4 mg 05/29/23 22:02 05/29/23 22:15 Morphine Sulfate 4 Mg/Ml Cartridge IVPUSH 05/29/23 22:03 4 mg ONCE ONE Administration Protocol Ondansetron HCl 4 mg 05/29/23 22:02 05/29/23 22:15 Ondansetron Hcl 4 Mg/2 Ml Vial IVPUSH 05/29/23 22:03 4 mg ONCE ONE Administration Oxycodone HCl 10 mg 05/30/23 00:50 05/30/23 01:04 Oxycodone Hcl Immed Release 5 Mg Tablet PO 05/30/23 00:51 10 mg ONCE ONE Administration Tamsulosin HCl 0.4 mg 05/29/23 23:38 05/29/23 23:42 Tamsulosin Hcl 0.4 Mg Capsule PO 05/29/23 23:39 0.4 mg ONCE ONE Administration Medical Decision Making Medical Decision Making [facility] Narrative: Patient with left UVJ stone 4 mm with moderate hydronephrosis still having the pain will give Flomax and Dilaudid and see the response Differential Diagnosis Differential Diagnoses: The differential diagnosis associated with the presentation includes Kidney stone/UTI Lab Data [facility] Lab Attestation statement: I reviewed the patient's lab results. 05/29/23 22:10 05/29/23 22:10 Labs: Lab Results 05/29/23 05/29/23 Range/Units 22:10 23:07 WBC 10.5 (4.8-10.8) X10*3/uL RBC 5.38 (4.60-5.80) X10*6/uL Hgb 14.9 (14.0-18.0) g/dl Hct 45.4 (42.0-52.0) % MCV 84.4 (80.0-98.0) fL MCH 27.7 (27.0-33.0) pg MCHC 32.8 (31.0-36.0) g/dl RDW 13.9 (11.0-16.0) % Plt Count 285 (160-400) X10*3/uL MPV 10.2 (9.4-12.4) fL Immature Gran % (Auto) 0.3 (0.0-0.4) % Neut % (Auto) 65.5 (45-73) % Lymph % (Auto) 25.2 (20-40) % Rogers % (Auto) 8.3 (2-11) % Eos % (Auto) 0.4 (0-4) % Baso % (Auto) 0.3 (0-2) % Lymph # (Auto) 2.7 (1.2-4.9) X10*3/uL Rogers # (Auto) 0.9 (0.1-1.2) X10*3/uL Eos # (Auto) 0.0 (0.0-0.4) X10*3/uL Baso # (Auto) 0.0 (0.0-0.2) X10*3/uL Abs Immat Gran (auto) 0.03 (0.00-0.03) X10*3/uL Absolute Neuts (auto) 6.9 (2.0-8.3) x10*3/uL Absolute Nucleated RBC 0.000 (0.0-0.012) X10*3/uL Nucleated RBC % (auto) 0.0 (0.0-0.2) /100WBC Sodium 145 (135-145) mmol/L Potassium 4.2 (3.3-5.1) mmol/L Chloride 110 H (96-108) mmol/L Carbon Dioxide 25 (22-29) mmol/L Anion Gap 14 (12-20) BUN 17 H (9-16) mg/dL Creatinine 1.15 (0.5-1.4) mg/dL Estim Creat Clear Calc 123.7 Estimated GFR > 60 Random Glucose 146 H (60-115) mg/dL Calcium 9.5 D (8.4-10.2) mg/dL Total Bilirubin 0.2 (0.0-1.0) mg/dL Direct Bilirubin < 0.2 (0.0-0.5) mg/dL AST 32 (5-37) U/L ALT 58 H (0-40) U/L Alkaline Phosphatase 80 (39-117) U/L Total Protein 8.2 H (6.5-8.0) g/dL Albumin 4.3 (3.5-5.0) g/dL Lipase 28 (8-78) U/L Urine Color Yellow Urine Appearance Clear Urine pH 6.0 (5.0-9.0) Ur Specific [place] 1.020 (1.005-1.025) Urine Protein Negative (Neg-Trace) mg/dL Urine Glucose (UA) Negative (Negative) mg/dL Urine Ketones Negative (Negative) mg/dL Urine Blood Large (3+) H (Negative) Urine Nitrite Negative (Negative) Ur Leukocyte Esterase Negative (Negative) Urine RBC >20 H (0-2) /HPF Urine WBC 0-5 (0-5) /HPF Ur Squamous Epith Cells 0-2 (0-2) /HPF Urine Bacteria None Seen (None Seen) Hyaline Casts 3-5 (0-2) /LPF Radiology Impression Discussion of test interpretation with radiology: I have reviewed the radiologist's reading. Radiologist Impression: CT/CT abdomen pelvis wo IV con IMPRESSION: 1. A 4.5 mm calculus at the left distal ureter produces mild left hydroureteronephrosis. 2. A 4 mm nonobstructing renal calculus in the right lower renal pole. 3. Hepatic steatosis. 4. Cholelithiasis without evidence of acute cholecystitis. Discharge Plan Discharge Clinical Impression: Kidney stone on left side Patient Disposition: Home, Self-Care Instructions: Kidney Stones (ED) Additional Instructions: Drink plenty of fluids Pain medications prescribed Flomax to dilate the kidney tubes Report to the ER if pain gets worse/vomiting/back pain Prescriptions: New morphine 15 mg tablet 15 mg PO Q8H PRN (Reason: pain) Qty: 15 0RF Rx Instructions: Partial Fill upon patient request. tamsulosin [Flomax] 0.4 mg capsule 0.4 mg PO BEDTIME Qty: 14 0RF ondansetron 4 mg tablet,disintegrating 4 mg PO Q6-8H PRN (Reason: nausea and vomiting) Qty: 14 0RF Referrals: Jeffrey Gipson MD [Physician] - 2 days Stand Alone Forms: Work/School Release
[2023-05-29 22:14] LABS: MANUAL DIFF FLAG NO
[2023-05-29 22:15] LABS: Basophils Percent Auto 0.3 % (0-2); Eosinophils Percent Auto 0.4 % (0-4); Hematocrit 45.4 % (42.0-52.0); Hemoglobin 14.9 g/dl (14.0-18.0); Imm Gran Abs Auto 0.03 X10*3/uL (0.00-0.03); Imm Gran Pct Auto 0.3 % (0.0-0.4); Lymphocytes Absolute Auto 2.7 X10*3/uL (1.2-4.9); Lymphocytes Percent Auto 25.2 % (20-40); Mean Corpuscular HGB Conc 32.8 g/dl (31.0-36.0); Mean Corpuscular Hemoglobin 27.7 pg (27.0-33.0); Mean Corpuscular Volume 84.4 fL (80.0-98.0); Mean Platelet Volume 10.2 fL (9.4-12.4); Monocytes Absolute Auto 0.9 X10*3/uL (0.1-1.2); Monocytes Percent Auto 8.3 % (2-11); Neutrophils Absolute Auto 6.9 x10*3/uL (2.0-8.3); Neutrophils Percent Auto 65.5 % (45-73); Platelet Count 285 X10*3/uL (160-400); Red Blood Count 5.38 X10*6/uL (4.60-5.80); Red Cell Distribution Width 13.9 % (11.0-16.0); White Blood Count 10.5 X10*3/uL (4.8-10.8)
[2023-05-29] MEDS: 0.9 % Sodium Chloride 1,000 ML 999 ML IV (22:15)
[2023-05-29] MEDS: Morphine Sulfate 4 MG/ML CARTRIDGE IVPUSH (22:15)
[2023-05-29] MEDS: ondansetron HCL 4 MG/2 ML VIAL IVPUSH (22:15)
[2023-05-29] MEDS: Ketorolac Tromethamine 30 MG/ML VIAL IVPUSH (22:15)
[2023-05-29 22:30] LABS: Alanine Aminotransferase 58 U/L (0-40); Albumin Level 4.3 g/dL (3.5-5.0); Alkaline Phosphatase 80 U/L (39-117); Anion Gap 14 (12-20); Aspartate Amino Transferase 32 U/L (5-37); Bilirubin Direct < 0.2 mg/dL (0.0-0.5); Bilirubin Total 0.2 mg/dL (0.0-1.0); Blood Urea Nitrogen 17 mg/dL (9-16); Calcium 9.5 mg/dL (8.4-10.2); Carbon Dioxide 25 mmol/L (22-29); Chloride 110 mmol/L (96-108); Creatinine Clr Calc Pharmacy 123.7; Estimated Glomerular Filt Rate > 60; Glucose Random 146 mg/dL (60-115); Lipase 28 U/L (8-78); Potassium 4.2 mmol/L (3.3-5.1); Sodium 145 mmol/L (135-145); Total Protein 8.2 g/dL (6.5-8.0)
[2023-05-29 23:13] LABS: Appearance Urine Clear; Color Urine Yellow; Glucose Urine UA Negative (Negative); Leukocyte Esterase Urine Negative (Negative); Nitrite Urine Negative (Negative); UMIC TRIGGER UACC YES; Urine Blood Large (3+) (Negative); Urine Ketones Negative (Negative); Urine Protein Negative (Neg-Trace)
[2023-05-29 23:15] LABS: Bacteria Urine None Seen (None Seen); RBC Urine >20 /HPF (0-2); Squamous Epithelial Cell Urine 0-2 /HPF (0-2); WBC Urine 0-5 /HPF (0-5)
[2023-05-29 23:36] VITALS: BP 144/87; PULSE 105; RESP 16; TEMP 37; O2SAT 99
[2023-05-29] MEDS: HYDROmorphone HCl 1 MG/ML SYRINGE IVPUSH (23:42)
[2023-05-29] MEDS: Tamsulosin HCL 0.4 MG CAPSULE PO (23:42)
[2023-05-30] MEDS: dexAMETHasone sod phosphate 10 MG/ML VIAL IVPUSH (01:04)
[2023-05-30] MEDS: oxyCODONE HCl Immed Release 5 MG TABLET 10 MG PO (01:04)
== END 2023-05-30 01:46 | disposition home or self-care (01) ==
PROVIDERS: Emergency Provider Internal Medicine; PCP Internal Medicine
DX: N13.2 Hydronephrosis with renal and ureteral calculous obstruction (principal); R11.2 Nausea with vomiting, unspecified
CPT/HCPCS: 36415; 74176; 80048; 80076; 81001; 83690; 85025; 96361; 96374; 96375; 99284; 99285; J1100; J1170; J1885; J2270; J2405

== ENCOUNTER 2023-07-08 14:37 | Outpatient (AMB) | payer BC, SELFPAY ==
[2023-07-08 14:59] VITALS: BP 140/90; PULSE 104; O2SAT 97; BMI 43.9
--- NOTE | 2023-07-08 14:59 | A.OFFPC_ITS ---
Vital Signs 07/08/23 14:59 Height 5 ft 10 in Weight 306 lb BMI 43.9 BP 140/90 H Blood Pressure Location Lt brachial Position Sitting Pulse 104 H Pulse Source Pulse Oximeter Pulse Oximetry (%) 97 Oxygen Delivery Method Room Air Intake Visit Reasons: PE Intake Note: Patient is here today for a physical. Drive Man Required: No Accompanied by: Self / Same As Patient Allergies No Known Allergies Allergy (Verified 07/08/23 15:12) Medication List - Last Reconciled 07/08/23 by Dell Gold PA-C Tobacco use date assessed: 07/08/23 Dental Screening Dental Screen Date: 07/08/23 Did you have a dental visit in the last 12 months?: Yes Did you have a dental problem in the last 6 months where you did not have access to dental care?: No Was dental information given to patient?: Patient has dentist HPI PE HPI Details PATIENT IS A 37-YEAR-OLD MALE HERE TODAY FOR ROUTINE ANNUAL PHYSICAL. PATIENT HAS A PAST MEDICAL HISTORY SIGNIFICANT FOR BORDERLINE HIGH CHOLESTEROL, ASTHMA, OBESITY, Recently seen at the [facility] for acute flank pain. Abdominal CT showing a 4.5 cm kidney stone with secondary hydronephrosis. Patient was placed on medication for pain and tamsulosin. He reports 2 days later his pain is completely resolved. Not taking any medications at this time. Noted slightly elevated blood pressure reading today in office. He does not normally check his blood pressure outside of the medical visits. Advised to do home blood pressure monitoring. He otherwise denies any headache, chest pain or dizziness. .. Obesity: Unfortunately has gained a few lb since last office visit. He does understand his BMI is over 40. Has been able to lose weight since last office visit with lifestyle modifications. .. Asthma: Asthma has not been a regular problem for him. Has not had to use his albuterol inhaler at all. Reports his asthma exacerbates when he gets a cold. .. Borderline high cholesterol : Most recent fasting lipid panel showing b orderline high total cholesterol. Has been making lifestyle modifications and has lost weight reduce his cholesterol Vaccine: Declines COVID , Declines FLu vaccine , needs tetanus those considering at this time [facility] Medical History (Updated 07/08/23 @ 15:24 by Dell Gold PA-C) Sacrococcygeal pilonidal cyst Nephrolithiasis Morbid obesity with BMI of 40.0-44.9, adult Surgical History History of excision of pilonidal cyst Family History Father No problems noted. Mother Medical history unknown Maternal Grandfather CAD (coronary artery disease) Social History Housing: House Alcohol intake: never Patient Tobacco Use Status: Never used Tobacco Tobacco use type: Cigarette e-Cigarette/Vaping Use: Never Used Second Hand Smoke Exposure: No service: No Current occupational status: employed Current occupation: [employer] Cognitive needs: No Hearing needs: No Vision needs: No Questionnaire PHQ-9 Over the last 2 weeks, how often have you been bothered by any of the following problems? 1. Little interest or pleasure in doing things: not at all 2. Feeling down, depressed, or hopeless: not at all 3. Trouble falling or staying asleep, or sleeping too much: not at all 4. Feeling tired or having little energy: not at all 5. Poor appetite or overeating: not at all 6. Feeling bad about yourself - or that you are a failure or have let yourself or your family down: not at all 7. Trouble concentrating on things, such as reading the newspaper or watching television: not at all 8. Moving or speaking so slowly that other people could have noticed. Or the opposite - being so fidgety or restless that you have been moving around a lot more than usual: not at all 9. Thoughts that you would be better off or of hurting yourself in some way: not at all Total score: 0 Depression Screening Interpretation: Negative Depression Screening Done: Yes 28119 - PHQ-9 Billing: Yes Source: Developed by Drs. Michael Phelan, Stephanie Ferro, Tio Reilly and colleagues, with an educational alvin from [employer]. Thrive Questionnaire Date Thrive assessed: 07/08/23 I am a: Patient What is your living situation today?: I have a steady place to live Within the past 12 months, did the food you bought not last and you didn't have the money to get more?: Never true Within the past 12 months, did you worry whether your food would run out before you got money to buy more?: Never true Do you have trouble paying for medicines?: No Do you have trouble getting transportation to medical appointments?: No Do you have trouble paying your heating and electricity bill?: No Do you have trouble taking care of your child, family member or friend?: No Do you have trouble with day-to-day activities such as bathing, preparing meals, shopping, managing finances, etc.?: No Are you currently unemployed and looking for a job?: No Are you interested in more education?: No Please select the resources that you would like help with: None Currently or been in a relationship where the following occur: no concerns reported AUDIT C Alcohol Use Questionnaire (AUDIT-C) 1. How often do you have a drink containing alcohol?: Never 3. How often do you have six or more drinks on one occasion?: Never Total Score: 0 KEITH-7 AMB Questionnaire KEITH-7 Date KEITH - 7 assessed: 07/08/23 Feeling nervous, anxious, or on edge: 0 = Not at all Not being able to stop or control worryin = Not at all Worrying too much about different things: 0 = Not at all Trouble relaxin = Not at all Being so restless that it is hard to sit still: 0 = Not at all Becoming easily annoyed or irritable: 0 = Not at all Feeling afraid as if something awful might happen: 0 = Not at all Total KEITH-7 score (0-4 normal; 5-9 mild; 10-14 moderate; 15-21 severe): 0 Source: Developed by Drs. Michael Phelan, Stephanie Ferro, Tio Reilly and colleagues, with an educational alvin from [employer]. KEITH-7 Assessment Billing KEITH-7 Assessment Tool: KEITH-7 Assessment 67290 ACT Questionnaire In the past 4 weeks, how much of the time did your asthma keep you from getting as much done at work, school or at home?: None of the time During the past 4 weeks, how often have you had shortness of breath?: Not at all During the past 4 weeks, how often did your asthma symptoms wake you up at night or earlier than usual in the morning?: Not at all During the past 4 weeks, how often have you had to use your rescue inhaler or nebulizer medication?: Not at all How would you rate your asthma control during the past 4 weeks?: Completely controlled ACT Interpretation: Negative Score: 25 Review of Systems Const Denies body aches, Denies chills, Denies excessive sweating, Denies fatigue, Denies fever(s) and Denies headache(s) Eyes Denies blurry vision ENT Denies dysphagia, Denies vertigo, Denies dizziness, Denies headache(s), Denies hearing loss and Denies tinnitus Card Denies chest pain, Denies chest pain with activity, Denies syncope, Denies irregular heart rhythm and Denies dyspnea Resp Denies chest congestion, Denies cough, Denies hemoptysis, Denies dyspnea and Denies wheezing GI Denies abdominal pain, Denies melena, Denies hematochezia, Denies coffee ground emesis, Denies dysphagia, Denies diarrhea, Denies nausea and Denies vomiting Denies difficulty urinating, Denies dysuria, Denies urinary frequency, Denies urinary hesitancy and Denies urinary urgency Musc Denies arthralgias, Denies limited range of motion, Denies muscle cramps and Denies muscle weakness Skin/Breast Denies rash and Denies skin ulcer Neuro Denies Abnormal speech present, Denies confusion, Denies vertigo, Denies dizziness, Denies syncope, Denies headache(s), Denies memory loss and Denies seizure-like activity Psych Denies anxiety, Denies confusion, Denies depression, Denies memory loss, Denies panic attacks and Denies paranoia Endo Denies excessive sweating, Denies fatigue, Denies flushing, Denies polydipsia and Denies polyuria Aller/Immun Denies wheezing Physical exam (Primary Care) Vital Signs: Last Vital Signs Pulse 104 H 07/08/23 14:59 BP 140/90 H 07/08/23 14:59 Pulse Ox 97 07/08/23 14:59 Oxygen Delivery Method Room Air 07/08/23 14:59 BMI result Body Mass Index 43.9 BMI Assessment/Plan discussion: High Tobacco/Smoking Status: Tobacco use Status Tobacco use date assessed 07/08/23 07/08/23 15:01 Patient Tobacco Use Status Never used Tobacco 07/08/23 15:00 Tobacco use type Cigarette 07/08/23 15:00 e-Cigarette/Vaping Use Never Used 07/08/23 15:00 PHQ-9: PHQ-9 Score PHQ-9: Total score 0 07/08/23 15:16 Depression Screening Interpretation: Negative Thrive Assessment: Date of Thrive Assessment Date Thrive assessed 07/08/23 07/08/23 15:05 Currently or been in a relationship where the following occur: no concerns reported Const Other: Obese General: cooperative, comfortable, no acute distress, alert and awake; No confusion Orientation/consciousness: oriented to person, oriented to place, patient oriented x3 and No confusion HENMT Head: Yes normocephalic Ears: external ears normal and TM's normal bilaterally Face and sinus: No sinus tenderness Mouth: Normal oral and palatal mucosa present and tongue normal Teeth and gingiva: dentition normal and gingiva normal Throat: Yes posterior oropharynx normal, Yes tonsils normal and Yes uvula midline Eyes Conjunctivae: conjunctivae normal Sclerae: sclerae normal Pupils: Equal, round and reactive pupils present EOM: EOMs intact bilaterally Direct Ophthalmoscopy: No no photophobia Neck Neck: Yes no lymphadenopathy, No tender and Yes no JVD Thyroid: Thyroid normal Carotids: no bruits Chest Chest palpation & inspection: no tenderness Resp Effort & Inspection: normal respiratory effort, no audible wheezes, not labored and no stridor Auscultation: no crackles, no rales, no rhonchi and no wheezes Cardio Jugular venous distension: no JVD Rate: regular rate, not bradycardic and not tachycardic Rhythm: regular rhythm Bruits: no carotid bruits Peripheral pulses: Peripheral pulses 2+ throughout GI Inspection: Yes normal to inspection, No abdominal wall ecchymosis and No visible herniation Palpation (GI): Soft to palpation, nontender, no guarding, not rigid and No hepatosplenomegaly present Auscultation: normoactive bowel sounds General: Yes no CVA tenderness Back/Spine/Pelvis Back: no CVA tenderness and No back tenderness Cervical Spine: cervical ROM normal Thoracic/Lumbar Spine: thoracic and lumbar spine normal to inspection, straight leg raise negative bilaterally, No thoraco-lumbar ROM limited and No lumbar spinal tenderness Skin Lesions: no lesions Rashes: no rashes Wounds: no wounds Neuro General: oriented to person, oriented to place, patient oriented x3, CN's II-XI intact bilaterally and No confusion Cranial nerves: Yes Equal, round and reactive pupils present and Yes Normal accommodation reflex present Cognition (Neuro): normal cognition Speech: No Abnormal speech present Gait exam (Neuro): Normal gait present Motor exam (neuro): 5/5 motor strength present throughout Extrem Right upper extremity: full ROM; no cyanosis Left upper extremity: full ROM; no cyanosis Right lower extremity: no edema Left lower extremity: no edema Psych Appearance: grossly normal Mental Status: mental status grossly normal Affect: normal affect Attitude: cooperative Thought process: Normal thought process present Assessment and Plan Assessment & Plan (1) Annual physical exam: Code(s): Z00.00 - Encounter for general adult medical examination without abnormal findings (2) Borderline high cholesterol: Code(s): E78.9 - Disorder of lipoprotein metabolism, unspecified Plan: Patient's most recent fasting lipid panel showing borderline high total cholesterol. He will continue working on lifestyle modifications and reducing high cholesterol foods in his diet. Of note recent abdominal CT scan showing evidence gallstones. Does have right upper quadrant pain when he eats high fatty foods. He will make dietary changes. (3) Obese: Code(s): E66.9 - Obesity, unspecified Qualifiers: Body mass index: BMI 40.0-44.9 Obesity classification: adult class 3 (BMI >= 40) Obesity type: due to excess calories Serious obesity comorbidity presence: without serious comorbidity Qualified Code(s): E66.01 - Morbid (severe) obesity due to excess calories; Z68.41 - Body mass index [BMI] 40.0- 44.9, adult Plan: Patient does understand his BMI is over 40. Unfortunately gained weight since last annual physical. Advised to work on being more physically active and adapting to better eating habits to reduce his weight. (4) Morbid obesity with BMI of 40.0-44.9, adult: Code(s): E66.01 - Morbid (severe) obesity due to excess calories; Z68.41 - Body mass index [BMI] 40.0-44.9, adult (5) Asthma: Code(s): J45.909 - Unspecified asthma, uncomplicated Qualifiers: Asthma complication type: uncomplicated Asthma persistence: intermittent Asthma severity: mild Qualified Code(s): J45.20 - Mild intermittent asthma, uncomplicated Plan: Patient's asthma well controlled. Not having to use any albuterol inhaler. He denies any asthma exacerbations or nighttime awakenings with asthma symptoms. (6) Nephrolithiasis: Code(s): N20.0 - Calculus of kidney Plan: As per HPI a recently had an ER visit for acute flank pain. CT abdomen showing a left 4.5 cm kidney stone with hydronephrosis. Was given Flomax and pain medication and felt better within 48 hours. Will refer to Urology has his stones are fairly large. Orders: Orders Comprehensive Gary. Panel Fast 07/08/23 E78.9 - Disorder of lipoprotein metabolism, unspecified Lipid Panel 07/08/23 E78.9 - Disorder of lipoprotein metabolism, unspecified Complete Blood Count no Diff 07/08/23 J45.20 - Mild intermittent asthma, uncomplicated US renal BI 07/08/23 N20.0 - Calculus of kidney Referrals Urology Referral N20.0 - Calculus of kidney Coding Level of Care Code Est Pt Prev Care [id number]) Diagnoses Annual physical exam Z00.00 Borderline high cholesterol E78.9 Class 3 severe obesity due to excess calories without serious comorbidity with body mass index (BMI) of 40.0 to 44.9 in adult E66.01; Z68.41 Body mass index: BMI 40.0-44.9 Obesity classification: adult class 3 (BMI >= 40) Obesity type: due to excess calories Serious obesity comorbidity presence: without serious comorbidity Morbid obesity with BMI of 40.0-44.9, adult E66.01; Z68.41 Mild intermittent asthma without complication J45.20 Asthma complication type: uncomplicated Asthma persistence: intermittent Asthma severity: mild Nephrolithiasis N20.0 Additional Codes KEITH-7 Assessment Billing - KEITH-7 Assessment Tool: KEITH-7 Assessment 21342 ([id number])
== END 2023-07-08 15:27 | disposition home or self-care (01) ==
PROVIDERS: PCP Internal Medicine; Visit Provider Physician Assistant
DX: Z00.00 Encounter for general adult medical examination without abnormal findings (principal); E78.9 Disorder of lipoprotein metabolism, unspecified; E66.01 Morbid (severe) obesity due to excess calories; Z68.41 Body mass index [BMI] 40.0-44.9, adult; J45.20 Mild intermittent asthma, uncomplicated; N20.0 Calculus of kidney
CPT/HCPCS: 99395

== ENCOUNTER 2023-07-08 15:31 | Outpatient (REF) | payer BC, SELFPAY ==
[2023-07-08 16:32] LABS: Hematocrit 48.8 % (42.0-52.0); Hemoglobin 15.7 g/dl (14.0-18.0); Mean Corpuscular HGB Conc 32.2 g/dl (31.0-36.0); Mean Corpuscular Hemoglobin 27.8 pg (27.0-33.0); Mean Corpuscular Volume 86.5 fL (80.0-98.0); Platelet Count 262 X10*3/uL (160-400); Red Blood Count 5.64 X10*6/uL (4.60-5.80); Red Cell Distribution Width 13.8 % (11.0-16.0); White Blood Count 11.5 X10*3/uL (4.8-10.8)
[2023-07-08 17:15] LABS: Alanine Aminotransferase 61 U/L (0-40); Albumin Level 4.5 g/dL (3.5-5.0); Alkaline Phosphatase 95 U/L (39-117); Anion Gap 13 (12-20); Aspartate Amino Transferase 32 U/L (5-37); Bilirubin Total 0.6 mg/dL (0.0-1.0); Blood Urea Nitrogen 13 mg/dL (9-16); Calcium 9.2 mg/dL (8.4-10.2); Carbon Dioxide 25 mmol/L (22-29); Chloride 104 mmol/L (96-108); Cholesterol 213 mg/dL (<200); Estimated Glomerular Filt Rate > 60; Glucose Fasting 74 mg/dL (60-99); HDL Cholesterol 42 mg/dL (>40); Potassium 4.3 mmol/L (3.3-5.1); Sodium 138 mmol/L (135-145); Total Protein 8.8 g/dL (6.5-8.0)
[2023-07-08 17:22] LABS: Triglycerides 443 mg/dL (<150)
== END 2023-07-08 15:32 | disposition home or self-care (01) ==
LOC: HO.LAB 15:31
PROVIDERS: PCP Physician Assistant; Visit Provider Physician Assistant
DX: E78.9 Disorder of lipoprotein metabolism, unspecified (principal); J45.20 Mild intermittent asthma, uncomplicated
CPT/HCPCS: 36415; 80053; 80061; 85027

== ENCOUNTER 2023-07-30 14:48 | Outpatient (REF) | payer BC, SELFPAY ==
--- NOTE | ~2023-07-30 | US_ITS ---
EXAMINATION: US RETROPERITONEAL LIMITED (RENAL ONLY) CLINICAL INFORMATION: Calculus of kidney. COMPARISON: CT abdomen and pelvis 05/29/2023. X-ray KUB 06/01/2020. TECHNIQUE: Real-time imaging of the kidneys. Limited visualization due to bowel gas. FINDINGS: RIGHT KIDNEY: 12.7 x 5.9 x 6.8 cm (SAG x AP x TRV). No hydronephrosis. Lower pole 0.8 cm calculus. Renal cortical thickness is normal. Limited visualization. LEFT KIDNEY: 11.7 x 5.7 x 6.4 cm (SAG x AP x TRV). No hydronephrosis. There is a 0.4 cm lower pole calculus. Renal cortical thickness is normal. Limited visualization. ADDITIONAL FINDINGS: Incidental note on limited views of the liver of diffuse increase in echogenicity of the liver, characteristic of primary hepatocellular disease, possibly due to hepatic steatosis. US/US renal BI IMPRESSION: 1. Bilateral nonobstructive renal calculi. No hydronephrosis. 2. Incidental note on limited views of the liver of diffuse increase in echogenicity of the liver, characteristic of primary hepatocellular disease, possibly due to hepatic steatosis.
== END 2023-07-30 14:49 | disposition home or self-care (01) ==
LOC: HO.US 14:48
PROVIDERS: PCP Physician Assistant; Visit Provider Physician Assistant
DX: N20.0 Calculus of kidney (principal)
CPT/HCPCS: 76775

== ENCOUNTER 2023-09-01 14:09 | Outpatient (AMB) | payer BC, SELFPAY ==
--- NOTE | 2023-09-01 14:46 | A.OFFVIS_ITS ---
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 The patient was seen in the emergency room in May 2023 with left flank pain. CT imaging at that time noted a 4.5 mm distal left ureteral stone. The patient states he passed the stone. He states that he had 1 other episode of kidney stone attack about a year ago. He had a renal ultrasound in July 2023 which noted bilateral nephrolithiasis. The patient states he is asymptomatic he has not interested in any procedures at this time. I have discussed metabolic workup he wants to hold on this. Renal ultrasound-07/30/2023-bilateral nephrolithiasis no hydronephrosis CTAP- 05/29/23-- 4.5 mm left ureteral stone, 4mm right renal stone Plan will [id number] in 1 year with renal ultrasound prior [facility] Medical History Sacrococcygeal pilonidal cyst Nephrolithiasis Morbid obesity with BMI of 40.0-44.9, adult Surgical History History of excision of pilonidal cyst Family History Father No problems noted. Mother Medical history unknown Maternal Grandfather CAD (coronary artery disease) Social History Housing: House Alcohol intake: never Patient Tobacco Use Status: Never used Tobacco Tobacco use type: Cigarette e-Cigarette/Vaping Use: Never Used Second Hand Smoke Exposure: No service: No Current occupational status: employed Current occupation: [employer] Cognitive needs: No Hearing needs: No Vision needs: No Review of Systems Const All systems reviewed & are unremarkable except as noted in HPI and below Reports no additional complaints Eyes Reports no additional complaints ENT Reports no additional complaints Card Denies dyspnea Resp Denies cough and Denies dyspnea GI Reports no additional complaints Musc Reports no additional complaints Skin/Breast Denies rash and Denies unusual bruising Neuro Reports no additional complaints Psych Reports no additional complaints Endo Reports no additional complaints Azar/Lymph Reports no additional complaints Aller/Immun Reports no additional complaints Physical Exam Const General: healthy appearing, no acute distress and well developed Orientation/consciousness: patient oriented x3 HEENT Head: Yes normocephalic and Yes atraumatic Eyes Conjunctivae: conjunctivae normal Neck Neck: Yes normal visual inspection Chest Chest palpation & inspection: normal inspection of the chest Resp Effort & Inspection: normal respiratory effort Cardio Rate: regular rate GI Inspection: Yes normal to inspection Palpation (GI): Soft to palpation Skin General skin exam: no rashes or lesions noted Neuro General: patient oriented x3 Extrem General: No pedal edema Psych Appearance: grossly normal Affect: normal affect Results Reviewed Results Reviewed: Date of Service: 07/30/23 EXAMINATION: US RETROPERITONEAL LIMITED (RENAL ONLY) CLINICAL INFORMATION: Calculus of kidney. COMPARISON: CT abdomen and pelvis 05/29/2023. X-ray KUB 06/01/2020. TECHNIQUE: Real-time imaging of the kidneys. Limited visualization due to bowel gas. FINDINGS: RIGHT KIDNEY: 12.7 x 5.9 x 6.8 cm (SAG x AP x TRV). No hydronephrosis. Lower pole 0.8 cm calculus. Renal cortical thickness is normal. Limited visualization. LEFT KIDNEY: 11.7 x 5.7 x 6.4 cm (SAG x AP x TRV). No hydronephrosis. There is a 0.4 cm lower pole calculus. Renal cortical thickness is normal. Limited visualization. ADDITIONAL FINDINGS: Incidental note on limited views of the liver of diffuse increase in echogenicity of the liver, characteristic of primary hepatocellular disease, possibly due to hepatic steatosis. IMPRESSION: 1. Bilateral nonobstructive renal calculi. No hydronephrosis. 2. Incidental note on limited views of the liver of diffuse increase in echogenicity of the liver, characteristic of primary hepatocellular disease, possibly due to hepatic steatosis. Date of Service: 05/29/23 EXAMINATION: CT ABDOMEN AND PELVIS WITHOUT CONTRAST CLINICAL INFORMATION: Left flank pain with history of stones. COMPARISON: 12/16/2020 TECHNIQUE: Multidetector volumetric imaging was performed from the superior aspect of the liver through the pubic symphysis. Sagittal and coronal reformatted images were obtained on the technologist's workstation. This CT examination was performed using dose optimization techniques as appropriate, variously including the following: *Automated exposure control *Adjustment of mA and/or kV according to patient size (this includes techniques or standardized protocols for targeted exams where dose is matched to indication/reason for exam; i.e. extremities or head) *Use of iterative reconstruction technique DLP: 1158 mGy-cm FINDINGS: LUNG BASES: The visualized lung bases are unremarkable. LIVER, GALLBLADDER, AND BILIARY TREE: Relative hypoattenuation of the hepatic parenchyma is consistent with steatosis. Focal fatty sparing is noted around the gallbladder fossa and at the hepatic segment 1. No appreciable hepatic lesions. Liver is borderline enlarged, measuring 20 cm craniocaudal. Hepatic contour is normal. Gallstones are suspected in the gallbladder. No appreciable gallbladder wall thickening or surrounding pericholecystic fluid. No biliary ductal dilatation. PANCREAS: Unremarkable. SPLEEN: Unremarkable. ADRENAL GLANDS: Unremarkable. KIDNEYS AND URETERS: Within a right lower renal pole calyx, there is a small irregular calculus measuring 4 mm in diameter, possibly a cluster of 2 adjacent calculi. No additional renal calculi are identified. The kidneys are normal in size, shape, and attenuation. No there is there is mild left hydroureteronephrosis with periureteral fat stranding due to a 4.5 mm calculus at the left distal ureter at the ureterovesical junction. No additional ureteral calculi. BLADDER: Unremarkable. GASTROINTESTINAL TRACT: Stomach, small bowel, and colon are normal in caliber. No bowel wall thickening or surrounding inflammatory changes. Appendix is normal. No intraperitoneal free fluid or free air. ABDOMINAL WALL: No significant hernia is appreciated. LYMPH NODES: Normal. VASCULAR: Unremarkable. PELVIC VISCERA: Unremarkable. OSSEOUS STRUCTURES: There is transitional anatomy at the lumbosacral junction with a partially lumbarized S1. No acute osseous findings. Mild osteoarthritis in the hips and SI joints. There is a prominent left paracentral disc protrusion at L5-S1 which narrows the central canal. IMPRESSION: 1. A 4.5 mm calculus at the left distal ureter produces mild left hydroureteronephrosis. 2. A 4 mm nonobstructing renal calculus in the right lower renal pole. 3. Hepatic steatosis. 4. Cholelithiasis without evidence of acute cholecystitis. Assessment & Plan Assessment & Plan (1) Nephrolithiasis: Code(s): N20.0 - Calculus of kidney Plan Follow-up in 1 year, renal ultrasound prior Orders: Orders US renal BI 10 Months N20.0 - Calculus of kidney Patient Instructions: The patient had an opportunity to ask questions regarding treatment plan. All questions were answered. Imaging, Laboratory studies and physical exam results were discussed and reviewed in detail. No major barriers to understanding were identified. The patient expressed understanding and agreement with the above treatment plan. The patient is aware they should contact our office by phone for worsening of their current condition or the appearance of new symptoms. Compliance is encouraged with any medications and followup testing that is ordered. It is a privilege to be allowed the opportunity to participate in the urologic care of your patient. If you have any questions or concerns regarding treatment for the above conditions please do not hesitate to contact me. The office telep candice contact is [phone]. This note is constructed in part using voice recognition software. While every effort has been made to ensure accuracy sales representative business courses errors may have been included. Yours sincerely, Laila Day MD Coding Level of Care Code New Pt Level 3 (37239) Diagnoses Nephrolithiasis N20.0
== END 2023-09-01 15:34 | disposition home or self-care (01) ==
PROVIDERS: PCP Physician Assistant; Visit Provider Urology
DX: N20.0 Calculus of kidney (principal)
CPT/HCPCS: 99203

== ENCOUNTER → 2023-09-01 14:09 | Outpatient (BNVA) | payer BC, SELFPAY | PROVIDERS: PCP Physician Assistant; Visit Provider Urology ==

== ENCOUNTER 2024-04-02 05:08 | Emergency (ER) | payer BC, SELFPAY ==
--- NOTE | 2024-04-02 | ECG_ITS ---
Test Reason : EPIGASTRIC PAIN Blood Pressure : / mmHG Vent. Rate : 076 BPM Atrial Rate : 076 BPM P-R Int : 144 ms QRS Dur : 094 ms QT Int : 388 ms P-R-T Axes : 074 016 037 degrees QTc Int : 436 ms Normal sinus rhythm Incomplete right bundle branch block Borderline ECG When compared with ECG of 09-AUG-2016 10:00, Vent. rate has decreased BY 49 BPM Referred By: Generic ED Physician Electronically Signed By:PAMELA GRISSOM
--- NOTE | ~2024-04-02 | US_ITS ---
EXAMINATION: US ABDOMEN LIMITED CLINICAL INFORMATION: Right upper quadrant tenderness. COMPARISON: None available. TECHNIQUE: Real-time imaging of the right upper quadrant abdominal viscera. FINDINGS: PANCREAS: The visualized proximal portion of the pancreas is unremarkable. The distal portion is obscured secondary to overlying bowel gas. LIVER: The liver is mildly enlarged measuring approximately 18.6 cm in length. The liver contour is normal. There is diffusely increased liver parenchymal echogenicity, consistent with hepatic steatosis. No focal hepatic lesion. There is no intrahepatic biliary duct dilatation seen. GALLBLADDER: The gallbladder is physiologically distended. A single gallstone is identified measuring up to 2.4 cm, appearing nonmobile. Gallbladder wall thickness is at the upper limits of normal. Right upper quadrant tenderness was reported during the exam. COMMON BILE DUCT: Difficult to identify due to patient body habitus. Possible common bile duct is identified measuring 0.6 cm in diameter. RIGHT KIDNEY: No hydronephrosis. Echogenic focus measuring 0.8 cm in the lower pole is suggestive of a renal calculus.. The kidney measures 11.7 cm in maximum dimension. FREE FLUID: None. US/US abdomen limited IMPRESSION: 1. Cholelithiasis with a nonmobile gallstone measuring up to 2.4 cm. Right upper quadrant tenderness was reported during the exam, although there is no gallbladder wall thickening. Overall findings are equivocal for acute cholecystitis, and if clinically warranted further assessment assessment with nuclear medicine hepatobiliary scan may be helpful. 2. Hepatic steatosis and mild hepatomegaly. 3. Suspected right lower pole renal calculus measuring up to 0.8 cm. Electronically signed by: Dimas Roldan MD 04/02/2024 08:36 AM EDT
[2024-04-02 05:13] VITALS: BP 142/93; PULSE 89; RESP 20; TEMP 36; O2SAT 97; BMI 45.6
[2024-04-02 05:22] VITALS: BP 139/89; PULSE 81; RESP 19; TEMP 36.7; O2SAT 94
[2024-04-02 05:42] LABS: MANUAL DIFF FLAG NO
[2024-04-02 05:43] LABS: Basophils Percent Auto 0.4 % (0-2); Eosinophils Percent Auto 0.1 % (0-4); Hematocrit 45.2 % (42.0-52.0); Imm Gran Abs Auto 0.03 X10*3/uL (0.00-0.03); Imm Gran Pct Auto 0.4 % (0.0-0.4); Lymphocytes Absolute Auto 1.5 X10*3/uL (1.2-4.9); Lymphocytes Percent Auto 17.8 % (20-40); Mean Corpuscular HGB Conc 33.2 g/dl (31.0-36.0); Mean Corpuscular Hemoglobin 27.8 pg (27.0-33.0); Mean Corpuscular Volume 83.9 fL (80.0-98.0); Mean Platelet Volume 10.3 fL (9.4-12.4); Monocytes Absolute Auto 0.5 X10*3/uL (0.1-1.2); Monocytes Percent Auto 5.9 % (2-11); Neutrophils Absolute Auto 6.4 x10*3/uL (2.0-8.3); Neutrophils Percent Auto 75.4 % (45-73); Platelet Count 299 X10*3/uL (160-400); Red Blood Count 5.39 X10*6/uL (4.60-5.80); Red Cell Distribution Width 13.9 % (11.0-16.0); White Blood Count 8.5 X10*3/uL (4.8-10.8)
[2024-04-02 06:06] LABS: Troponin-I High Sensitivity < 2.7 ng/L (<3.5-35.0)
[2024-04-02 06:22] LABS: Alanine Aminotransferase 58 U/L (0-40); Albumin Level 4.4 g/dL (3.5-5.0); Alkaline Phosphatase 85 U/L (39-117); Anion Gap 13 (12-20); Aspartate Amino Transferase 36 U/L (5-37); Bilirubin Total 0.3 mg/dL (0.0-1.0); Blood Urea Nitrogen 13 mg/dL (9-16); Calcium 9.6 mg/dL (8.4-10.2); Carbon Dioxide 24 mmol/L (22-29); Chloride 106 mmol/L (96-108); Creatinine Clr Calc Pharmacy 143.6; Estimated Glomerular Filt Rate > 60; Glucose Random 161 mg/dL (60-115); Lipase 22 U/L (8-78); Potassium 4.2 mmol/L (3.3-5.1); Sodium 139 mmol/L (135-145); Total Protein 8.5 g/dL (6.5-8.0)
[2024-04-02 06:35] VITALS: BP 113/70; PULSE 95; RESP 20; TEMP 36.6; O2SAT 92
--- NOTE | 2024-04-02 06:53 | ED_ITS ---
HPI - General Adult General Chief complaint: Abdominal Pain Stated complaint: right side abdominal pain Time Seen by Provider: 04/02/24 06:27 Source: patient Mode of arrival: ambulatory Limitations: no limitations History of Present Illness ED Provider: violeta [facility] narrative: Patient is a 38-year-old male with history of obesity, nephrolithiasis presenting to the emergency department with complaint of right upper quadrant pain since 5:00 p.m. last night after eating greasy food. Reports pain has been colicky but severe. Associated nausea and vomiting. Reports some loose stool. Denies constipation. Denies fevers. Denies sick contacts. Reports similar symptoms in the past but not as severe. Denies prior abdominal surgeries. complaint: Abdominal pain Onset (ago): hour(s) Location: abdomen Severity: severe Pain Consistency: colicky Exacerbating factors: eating Associated symptoms: nausea/vomiting Treatments prior to arrival: none Related Data Allergies Allergy/AdvReac Type Severity Reaction Status Date / Time No Known Allergies Allergy Verified 04/02/24 05:14 Review of Systems 2 Review of Systems: As per HPI. Yes all other systems are reviewed and are negative Constitutional: Constitutional: Reports as per HPI [facility] Past Medical History Medical History (Updated 04/02/24 @ 10:13 by Selina Jennings NP) Gallstone Sacrococcygeal pilonidal cyst Nephrolithiasis Morbid obesity with BMI of 40.0-44.9, adult Surgical History History of excision of pilonidal cyst Family History Family History Father No problems noted. Mother Medical history unknown Maternal Grandfather CAD (coronary artery disease) Social History Social History Housing: House Alcohol intake: never Patient Tobacco Use Status: Never used Tobacco Tobacco use type: Cigarette e-Cigarette/Vaping Use: Never Used Second Hand Smoke Exposure: No Advance Directives: No Advance Directives Information Provided: No Do you have a plan to hurt others: No Plan service: No Current occupational status: employed Current occupation: [employer] Cognitive needs: No Hearing needs: No Vision needs: No Physical Exam ED Vital Signs: Vital Signs - 24 hr 04/02/24 05:13 04/02/24 05:22 04/02/24 06:35 Temperature 96.8 F 98.1 F 97.8 F Pulse Rate 89 81 95 Respiratory Rate 20 19 20 Blood Pressure 142/93 H 139/89 113/70 Pulse Oximetry 97 94 92 Oxygen Delivery Method Room Air Room Air Room Air 04/02/24 10:07 Temperature 98.6 F Pulse Rate 84 Respiratory Rate 18 Blood Pressure 125/69 Pulse Oximetry 98 Oxygen Delivery Method Room Air BMI result Body Mass Index 45.6 Vital signs have been reviewed and appear to be correct. Blood pressure normal. Heart rate normal. Respiratory rate normal. Temperature normal. Oxygen saturation normal. Const General: cooperative and no acute distress Nutritional Appearance: obese Orientation/consciousness: oriented to person, oriented to place, oriented to time and patient oriented x3 Limitations: no limitations HENMT Head: Yes normocephalic and Yes atraumatic Ears: external ears normal General nose exam: Normal external nose present Face and sinus: Yes face symmetric Mouth: oropharynx normal and moist mucous membranes Throat: Yes uvula midline Eyes Pupils: Equal, round and reactive pupils present Neck Neck: Yes normal visual inspection and Yes supple Resp Effort & Inspection: normal respiratory effort and able to speak in complete sentences Auscultation: clear to auscultation bilaterally Cardio Rate: regular rate Rhythm: regular rhythm Heart sounds: S1 normal heart sound present and S2 normal heart sound present GI Palpation (GI): Soft to palpation, Tenderness to palpation present (GI) in the RUQ and Guarding due to palpation present (GI) in the RUQ Auscultation: normoactive bowel sounds General: Yes no CVA tenderness Back/Spine/Pelvis Back: no CVA tenderness Skin General skin exam: elasticity normal and turgor normal Neuro General: oriented to person, oriented to place, oriented to time, patient oriented x3, moves all extremities, no focal motor deficits and CN's II-XI intact bilaterally Cranial nerves: Yes Equal, round and reactive pupils present Cognition (Neuro): normal cognition Extrem General: Yes full ROM, Yes no pedal edema and Yes no calf tenderness Psych Mental Status: mental status grossly normal Affect: normal affect Thought process: Normal thought process present Medications Administered Discontinued Medications Generic Name Dose Route Start Last Admin Trade Name Freq PRN Reason Stop Dose Admin Sodium Chloride 1,000 mls @ 999 mls/hr 04/02/24 07:00 04/02/24 08:15 Ns IV 04/02/24 08:00 Infused .Q1H1M GUILLUAME Infusion Morphine Sulfate 4 mg 04/02/24 06:52 04/02/24 07:09 Morphine Sulfate 4 Mg/Ml Cartridge IVPUSH 04/02/24 06:53 Not Given ONCE ONE Protocol Ondansetron HCl 4 mg 04/02/24 06:52 04/02/24 07:09 Ondansetron Hcl 4 Mg/2 Ml Vial IVPUSH 04/02/24 06:53 Not Given ONCE ONE Medical Decision Making Medical Decision Making [facility] Narrative: Patient is a 38-year-old male with history of obesity, nephrolithiasis presenting to the emergency department with complaint of right upper quadrant pain since 5:00 p.m. last night after eating greasy food. On exam patient is awake, A+Ox3, VS WNL, afebrile, normal neurological exam without focal deficits, physical exam findings as above. Given reported symptoms and physical exam findings, initial differential includes cholecystitis, choledocholithiasis, biliary colic, cholangitis. Labs notable for left shfit without leukocytosis, no anemia, chronically elevated ALT, normal Tbili, negative troponin. EKG shows normal sinus rhythm. Ultrsound notable for cholelithiasis, 2.4cm gallstone. My interpretation is in agreement with the radiologist's interpretation. Case discussed with Dr. Tavarez, general surgery, who examined patient at bedside. Patient is now without pain. Dr. Tavarez feels patient is stable for discharge home with outpatient follow-up. Patient is agreeable to this. Return precautions discussed at bedside. Patient verbalized understanding of and agreement with plan. Differential Diagnosis Differential Diagnoses: The differential diagnosis associated with the presentation includes As per [facility] Admission/Observation Consideration of admission/observation: Escalation of care including admission/observation considered Consult Healthcare Provider Management of the patient was discussed with: Body Joiner (Dr. Tavarez) Lab Data [facility] Lab Attestation statement: I reviewed the patient's lab results. As per [facility] 04/02/24 05:37 04/02/24 05:37 Labs: Lab Results 04/02/24 04/02/24 Range/Units 05:37 05:38 WBC 8.5 (4.8-10.8) X10*3/uL RBC 5.39 (4.60-5.80) X10*6/uL Hgb 15.0 (14.0-18.0) g/dl Hct 45.2 (42.0-52.0) % MCV 83.9 (80.0-98.0) fL MCH 27.8 (27.0-33.0) pg MCHC 33.2 (31.0-36.0) g/dl RDW 13.9 (11.0-16.0) % Plt Count 299 (160-400) X10*3/uL MPV 10.3 (9.4-12.4) fL Immature Gran % (Auto) 0.4 (0.0-0.4) % Neut % (Auto) 75.4 H (45-73) % Lymph % (Auto) 17.8 L (20-40) % Gooding % (Auto) 5.9 (2-11) % Eos % (Auto) 0.1 (0-4) % Baso % (Auto) 0.4 (0-2) % Lymph # (Auto) 1.5 (1.2-4.9) X10*3/uL Gooding # (Auto) 0.5 (0.1-1.2) X10*3/uL Eos # (Auto) 0.0 (0.0-0.4) X10*3/uL Baso # (Auto) 0.0 (0.0-0.2) X10*3/uL Abs Immat Gran (auto) 0.03 (0.00-0.03) X10*3/uL Absolute Neuts (auto) 6.4 (2.0-8.3) x10*3/uL Absolute Nucleated RBC 0.000 (0.0-0.012) X10*3/uL Nucleated RBC % (auto) 0.0 (0.0-0.2) /100WBC Sodium 139 (135-145) mmol/L Potassium 4.2 (3.3-5.1) mmol/L Chloride 106 (96-108) mmol/L Carbon Dioxide 24 (22-29) mmol/L Anion Gap 13 (12-20) BUN 13 (9-16) mg/dL Creatinine 0.98 (0.5-1.4) mg/dL Estim Creat Clear Calc 143.6 Estimated GFR > 60 Random Glucose 161 H (60-115) mg/dL Calcium 9.6 (8.4-10.2) mg/dL Total Bilirubin 0.3 (0.0-1.0) mg/dL Direct Bilirubin 0.1 (0.0-0.5) mg/dL AST 36 (5-37) U/L ALT 58 H (0-40) U/L Alkaline Phosphatase 85 (39-117) U/L Troponin I High Sens < 2.7 (<3.5-35.0) ng/L Total Protein 8.5 H (6.5-8.0) g/dL Albumin 4.4 (3.5-5.0) g/dL Lipase 22 (8-78) U/L Independent Interpretation I performed an independent interpretation of an: Ultrasound Interpretation: U/S notable for cholelithiasis, 2.4cm gallstone Radiology Impression Discussion of test interpretation with radiology: I have reviewed the radiologist's reading. Radiologist Impression: US/US abdomen limited IMPRESSION: 1. Cholelithiasis with a nonmobile gallstone measuring up to 2.4 cm. Right upper quadrant tenderness was reported during the exam, although there is no gallbladder wall thickening. Overall findings are equivocal for acute cholecystitis, and if clinically warranted further assessment assessment with nuclear medicine hepatobiliary scan may be helpful. 2. Hepatic steatosis and mild hepatomegaly. 3. Suspected right lower pole renal calculus measuring up to 0.8 cm. External Record Review External record reviewed: Inpatient record, Office record and Outpatient record Discharge Plan Discharge Clinical Impression: Biliary colic Patient Disposition: Home, Self-Care Instructions: Biliary Colic (ED), Gallstones (ED) Additional Instructions: You were evaluated in the emergency department today for abdominal pain which appears to be related to a gallstone. You were evaluated by the surgeon, Dr. Tavarez who recommends outpatient follow-up. Please call his office to schedule an appointment, they will not call you. You are also being referred to the bariatric surgery office to discuss weight loss options. Avoid eating fatty/greasy, spicy foods as well as alcohol. Return to the emergency department if you develop severe pain, persistent vomiting, fever or any other concerning symptoms. Referrals: Alex Tavarez MD [Physician] - Yunior Hernandez MD [Physician] - Print Language: Swedish
[2024-04-02] MEDS: 0.9 % Sodium Chloride 1,000 ML 999 ML IV (07:08)
--- NOTE | 2024-04-02 07:17 | PC.NURSE ---
alert and oriented with even and unlabored respirations. 20IV right forearm, IV fluids infusing at this time. patient refused pain/nausea medications d/t no longer having pain or feeling nauseous. awaiting ultrasound at this time. visitor at bedside with call eugene within reach.
[2024-04-02 08:40] LABS: Bilirubin Direct 0.1 mg/dL (0.0-0.5)
--- NOTE | 2024-04-02 10:05 | PM.CNGS ---
History of Present Illness Consult details Consult date: 04/02/24 Narrative: 38-year-old male here in the ER referred for gallstones. He has known morbid obesity. He had episode of pain on the right upper quadrant yesterday. He came to the emergency room overnight. He had an ultrasound done showing a gallstone without associated significant gallbladder wall thickening or pericholecystic fluid. In view of his gallstone therefore I was consulted He did not have any fever or chills He also says that he has had episodes of this for about 2-3 years. He currently says that his pain and tenderness have resolved. Review of Systems Constitutional: Constitutional: Denies chills and Denies fever(s) Cardiovascular: Cardiovascular: Denies chest pain, Denies dyspnea and Denies dyspnea on exertion Respiratory: Respiratory: Denies cough, Denies dyspnea and Denies dyspnea on exertion Gastrointestinal: Gastrointestinal: Denies hematochezia and Denies change in bowel habits Genitourinary: Genitourinary: Denies hematuria and Denies difficulty urinating Musculoskeletal: Musculoskeletal: Denies back pain and Denies limited range of motion Neurologic: Denies focal weakness and Denies convulsions Psychiatric: Psychiatric: Denies depression and Denies mood swings [facility] Past Medical History Medical History (Updated 04/03/24 @ 00:00 by Herbert Alonso) Gallstone Sacrococcygeal pilonidal cyst Nephrolithiasis Morbid obesity with BMI of 40.0-44.9, adult Family History Family History Father No problems noted. Mother Medical history unknown Maternal Grandfather CAD (coronary artery disease) Surgical History Surgical History History of excision of pilonidal cyst Social History Social History Housing: House Alcohol intake: never Patient Tobacco Use Status: Never used Tobacco Tobacco use type: Cigarette e-Cigarette/Vaping Use: Never Used Second Hand Smoke Exposure: No Advance Directives: No Advance Directives Information Provided: No Do you have a plan to hurt others: No Plan service: No Current occupational status: employed Current occupation: [employer] Cognitive needs: No Hearing needs: No Vision needs: No Meds Allergies Allergy/AdvReac Type Severity Reaction Status Date / Time No Known Allergies Allergy Verified 04/02/24 05:14 Physical Exam Vital Signs: Vital Signs: Last Vital Signs Temp 97.8 F 04/02/24 06:35 Pulse 95 04/02/24 06:35 Resp 20 04/02/24 06:35 BP 113/70 04/02/24 06:35 Pulse Ox 92 04/02/24 06:35 O2 Del Method Room Air 04/02/24 06:35 BMI result Body Mass Index 45.6 Const: Other: Morbidly obese General: comfortable and no acute distress Orientation/consciousness: patient oriented x3 Neck: Neck: Yes no lymphadenopathy Resp: Auscultation: clear to auscultation bilaterally Cardio: Rhythm: regular rhythm GI: Other: No tenderness, no Izquierdo's sign Palpation (GI): Soft to palpation, nontender and no guarding Neuro: General: patient oriented x3 Results Labs 04/02/24 05:37 04/02/24 05:37 Labs: Abnormal lab results 04/02/24 Range/Units 05:37 Neut % (Auto) 75.4 H (45-73) % Lymph % (Auto) 17.8 L (20-40) % Random Glucose 161 H (60-115) mg/dL ALT 58 H (0-40) U/L Total Protein 8.5 H (6.5-8.0) g/dL Short CBC 04/02/24 Range/Units 05:37 WBC 8.5 (4.8-10.8) X10*3/uL Hgb 15.0 (14.0-18.0) g/dl Hct 45.2 (42.0-52.0) % Plt Count 299 (160-400) X10*3/uL BMP 04/02/24 05:37 Sodium 139 Potassium 4.2 Chloride 106 Carbon Dioxide 24 BUN 13 Creatinine 0.98 Calcium 9.6 Liver Function 04/02/24 Range/Units 05:37 Total Bilirubin 0.3 (0.0-1.0) mg/dL Direct Bilirubin 0.1 (0.0-0.5) mg/dL AST 36 (5-37) U/L ALT 58 H (0-40) U/L Alkaline Phosphatase 85 (39-117) U/L Albumin 4.4 (3.5-5.0) g/dL All other labs normal. Assessment and Plan (1) Gallstone: Status: Acute He had an episode of right upper quadrant pain and had an ultrasound in the ER showing a gallstone Currently, symptoms have resolved completely. He does not have any tenderness on examination His white count is normal. I have also reviewed his ultrasound and the gallbladder does not appear to be distended. There is no pericholecystic fluid or inflammatory changes. The stone is not in the neck In view of resolution of symptoms I told him that he can be discharged from the ER and we will need follow up in the office. He may benefit from elective cholecystectomy because of symptoms I had a long discussion with him about the benefits of weight loss as well as his body mass index is very high. He understands the plan well and is comfortable with this. His was with him during the discussion. . The ED provider was also present during the exam and discussion. Procedures Date of Service Date of Service: 04/04/24
[2024-04-02 10:07] VITALS: BP 125/69; PULSE 84; RESP 18; TEMP 37; O2SAT 98
[2024-04-02 10:28] VITALS: BP 125/69; PULSE 84; RESP 18; TEMP 37; O2SAT 98
== END 2024-04-02 10:29 | disposition home or self-care (01) ==
PROVIDERS: Registered Nurse Emergency; Emergency Provider Emergency Medicine; PCP Physician Assistant
DX: K80.20 Calculus of gallbladder without cholecystitis without obstruction (principal); R10.11 Right upper quadrant pain; R11.2 Nausea with vomiting, unspecified; R10.13 Epigastric pain; I45.10 Unspecified right bundle-branch block; Z79.899 Other long term (current) drug therapy
CPT/HCPCS: 36415; 76705; 80053; 82248; 83690; 84484; 85025; 93005; 99284; 99285

== ENCOUNTER → 2024-04-02 05:39 | Outpatient (BNV) | payer BC, SELFPAY | PROVIDERS: Emergency Provider Emergency Medicine; PCP Physician Assistant; Visit Provider Surgery | DX: K80.20 Calculus of gallbladder without cholecystitis without obstruction (principal) | CPT/HCPCS: 99283 ==

== ENCOUNTER 2024-06-21 15:46 | Outpatient (REF) | payer BC, SELFPAY | END 2024-06-21 15:47 | disposition home or self-care (01) | LOC: HO.US 15:46 | PROVIDERS: PCP Physician Assistant; Referring Provider Physician Assistant; Visit Provider Urology | DX: N20.0 Calculus of kidney (principal); J40 Bronchitis, not specified as acute or chronic | CPT/HCPCS: 71046; 76775 ==

== ENCOUNTER 2024-07-11 15:43 | Outpatient (REF) | payer BC, SELFPAY ==
[2024-07-11 17:07] LABS: Hematocrit 47.4 % (42.0-52.0); Hemoglobin 15.6 g/dl (14.0-18.0); Mean Corpuscular HGB Conc 32.9 g/dl (31.0-36.0); Mean Corpuscular Hemoglobin 27.7 pg (27.0-33.0); Mean Corpuscular Volume 84.2 fL (80.0-98.0); Platelet Count 285 X10*3/uL (160-400); Red Blood Count 5.63 X10*6/uL (4.60-5.80); Red Cell Distribution Width 13.7 % (11.0-16.0); White Blood Count 11.3 X10*3/uL (4.8-10.8)
[2024-07-11 18:08] LABS: Alanine Aminotransferase 62 U/L (0-40); Albumin Level 4.4 g/dL (3.5-5.0); Alkaline Phosphatase 99 U/L (39-117); Anion Gap 15 (12-20); Aspartate Amino Transferase 38 U/L (5-37); Bilirubin Total 0.5 mg/dL (0.0-1.0); Blood Urea Nitrogen 10 mg/dL (9-16); Calcium 9.2 mg/dL (8.4-10.2); Carbon Dioxide 26 mmol/L (22-29); Chloride 103 mmol/L (96-108); Cholesterol 216 mg/dL (<200); Estimated Glomerular Filt Rate > 60; Glucose Fasting 85 mg/dL (60-99); HDL Cholesterol 35 mg/dL (>40); LDL Cholesterol Calculated 162 mg/dL (<100); Potassium 3.9 mmol/L (3.3-5.1); Sodium 140 mmol/L (135-145); Triglycerides 98 mg/dL (<150)
== END 2024-07-11 15:44 | disposition home or self-care (01) ==
LOC: HO.LAB 15:43
PROVIDERS: PCP Physician Assistant; Visit Provider Physician Assistant
DX: Z00.00 Encounter for general adult medical examination without abnormal findings (principal); E78.9 Disorder of lipoprotein metabolism, unspecified; E66.813 Obesity, class 3; J45.20 Mild intermittent asthma, uncomplicated; N20.0 Calculus of kidney
CPT/HCPCS: 36415; 80053; 80061; 85027; 90471; 96127; 96160

== ENCOUNTER 2024-07-11 15:43 | Outpatient (AMB) | payer BC, SELFPAY ==
--- NOTE | 2024-07-11 15:55 | MHC.PC.OV ---
Vital Signs 07/11/24 16:07 Height 5 ft 9 in Weight 301 lb 8 oz BMI 44.5 BP 128/86 Blood Pressure Location Lt brachial Position Sitting Pulse 104 H Pulse Source Pulse Oximeter Pulse Oximetry (%) 97 Oxygen Delivery Method Room Air Intake Visit Reasons: pe Intake Note: Patient is here today for a physical. Bed And Breakfast Operator Required: No Accompanied by: Self / Same As Patient Allergies No Known Allergies Allergy (Verified 07/11/24 16:14) Medication List - Last Reconciled 07/11/24 by Dell Gold PA-C No Known Home Meds Tobacco use date assessed: 07/11/24 Dental Screening Dental Screen Date: 07/11/24 Did you have a dental visit in the last 12 months?: Yes Did you have a dental problem in the last 6 months where you did not have access to dental care?: No Was dental information given to patient?: Patient has dentist HPI pe HPI Details PATIENT IS A 38-YEAR-OLD MALE HERE TODAY FOR ROUTINE ANNUAL PHYSICAL. PATIENT HAS A PAST MEDICAL HISTORY SIGNIFICANT FOR BORDERLINE HIGH CHOLESTEROL, ASTHMA, OBESITY, . Gallstones: Has had an episode this past fall of 2023 of acute abdominal pain. He does understand he has gallstones and needs to watch his high cholesterol foods in his diet. He considered a elective cholecystectomy though he is holding off on this for now and will like to make dietary changes. .. Nephrolithiasis: Patient followed by Urology and has had a recent renal ultrasound in his waiting radiologist read out on this. He has not had any renal colic episodes for quite some time now. .. Obesity: Unfortunately has gained a few lb since last office visit. He does understand his BMI is over 40. He does admit to dietary indiscretion. Has been able to lose weight since last office visit with lifestyle modifications. .. Asthma: Asthma has not been a regular problem for him. Has not had to use his albuterol inhaler at all. Reports his asthma exacerbates when he gets a cold. .. Borderline high cholesterol : Most recent fasting lipid panel showing borderline high total cholesterol. Has been making lifestyle modifications and has lost weight reduce his cholesterol Vaccine: Declines COVID , Declines FLu vaccine , needs tetanus those considering at this time [facility] Medical History (Updated 07/12/24 @ 07:28 by Dell Gold PA-C) Gallstone Sacrococcygeal pilonidal cyst Nephrolithiasis Surgical History History of excision of pilonidal cyst Family History Father No problems noted. Mother Medical history unknown Maternal Grandfather CAD (coronary artery disease) Social History Housing: House Alcohol intake: never Patient Tobacco Use Status: Never used Tobacco Tobacco use type: Cigarette e-Cigarette/Vaping Use: Never Used Second Hand Smoke Exposure: No service: No Current occupational status: employed Current occupation: [employer] Cognitive needs: No Hearing needs: No Vision needs: No Questionnaire PHQ-9 Over the last 2 weeks, how often have you been bothered by any of the following problems? 1. Little interest or pleasure in doing things: not at all 2. Feeling down, depressed, or hopeless: not at all 3. Trouble falling or staying asleep, or sleeping too much: nearly every day 4. Feeling tired or having little energy: several days 5. Poor appetite or overeating: several days 6. Feeling bad about yourself - or that you are a failure or have let yourself or your family down: not at all 7. Trouble concentrating on things, such as reading the newspaper or watching television: several days 8. Moving or speaking so slowly that other people could have noticed. Or the opposite - being so fidgety or restless that you have been moving around a lot more than usual: not at all 9. Thoughts that you would be better off or of hurting yourself in some way: not at all Total score: 6 Depression Screening Interpretation: Positive Depression Screening Follow-up: Existing condition Depression Screening Done: Yes 20899 - PHQ-9 Billing: Yes Source: Developed by Drs. Michael Phelan, Stephanie Ferro, Tio Reilly and colleagues, with an educational alvin from [employer]. Thrive Questionnaire Date Thrive assessed: 07/11/24 I am a: Patient What is your living situation today?: I have a steady place to live Within the past 12 months, did the food you bought not last and you didn't have the money to get more?: I choose not to answer this question Within the past 12 months, did you worry whether your food would run out before you got money to buy more?: I choose not to answer this question Do you have trouble paying for medicines?: No Do you have trouble getting transportation to medical appointments?: No Do you have trouble paying your heating and electricity bill?: No Do you have trouble taking care of your child, family member or friend?: No Do you have trouble with day-to-day activities such as bathing, preparing meals, shopping, managing finances, etc.?: No Are you currently unemployed and looking for a job?: No Are you interested in more education?: No Please select the resources that you would like help with: None Currently or been in a relationship where the following occur: No concerns reported THRIVE Score: 0 AUDIT C Alcohol Use Questionnaire (AUDIT-C) 1. How often do you have a drink containing alcohol?: Never 3. How often do you have six or more drinks on one occasion?: Never Total Score: 0 KEITH-7 AMB Questionnaire KEITH-7 Date KIETH - 7 assessed: 07/11/24 Feeling nervous, anxious, or on edge: 1 = Several days Not being able to stop or control worryin = Not at all Worrying too much about different things: 0 = Not at all Trouble relaxin = Not at all Being so restless that it is hard to sit still: 0 = Not at all Becoming easily annoyed or irritable: 1 = Several days Feeling afraid as if something awful might happen: 0 = Not at all Total KEITH-7 score (0-4 normal; 5-9 mild; 10-14 moderate; 15-21 severe): 2 Source: Developed by Drs. Michael Phelan, Stephanie Ferro, Tio Reilly and colleagues, with an educational alvin from [employer]. KEITH-7 Assessment Billing KEITH-7 Assessment Tool: KEITH-7 Assessment 28612 ACT Questionnaire In the past 4 weeks, how much of the time did your asthma keep you from getting as much done at work, school or at home?: None of the time During the past 4 weeks, how often have you had shortness of breath?: Not at all During the past 4 weeks, how often did your asthma symptoms wake you up at night or earlier than usual in the morning?: Not at all During the past 4 weeks, how often have you had to use your rescue inhaler or nebulizer medication?: Not at all How would you rate your asthma control during the past 4 weeks?: Completely controlled ACT Interpretation: Negative Score: 25 Review of Systems Const Denies body aches, Denies chills, Denies excessive sweating, Denies fatigue, Denies fever(s) and Denies headache(s) Eyes Denies blurry vision ENT Denies dysphagia, Denies vertigo, Denies dizziness, Denies headache(s), Denies hearing loss and Denies tinnitus Card Denies chest pain, Denies chest pain with activity, Denies syncope, Denies irregular heart rhythm and Denies dyspnea Resp Denies chest congestion, Denies cough, Denies hemoptysis, Denies dyspnea and Denies wheezing GI Denies abdominal pain, Denies melena, Denies hematochezia, Denies coffee ground emesis, Denies dysphagia, Denies diarrhea, Denies nausea and Denies vomiting Denies difficulty urinating, Denies dysuria, Denies urinary frequency, Denies urinary hesitancy and Denies urinary urgency Musc Denies arthralgias, Denies limited range of motion, Denies muscle cramps and Denies muscle weakness Skin/Breast Denies rash and Denies skin ulcer Neuro Denies Abnormal speech present, Denies confusion, Denies vertigo, Denies dizziness, Denies syncope, Denies headache(s), Denies memory loss and Denies seizure-like activity Psych Denies anxiety, Denies confusion, Denies depression, Denies memory loss, Denies panic attacks and Denies paranoia Endo Denies excessive sweating, Denies fatigue, Denies flushing, Denies polydipsia and Denies polyuria Aller/Immun Denies wheezing Physical exam (Primary Care) Vital Signs: Last Vital Signs Pulse 104 H 07/11/24 16:07 BP 128/86 07/11/24 16:07 Pulse Ox 97 07/11/24 16:07 Oxygen Delivery Method Room Air 07/11/24 16:07 BMI result Body Mass Index 44.5 BMI Assessment/Plan discussion: High BMI High, discussed plan: lifestyle, weight reduction, dietary and physical activity Tobacco/Smoking Status: Tobacco use Status Tobacco use date assessed 07/11/24 07/11/24 15:57 Patient Tobacco Use Status Never used Tobacco 07/11/24 15:57 Tobacco use type Cigarette 07/11/24 15:57 e-Cigarette/Vaping Use Never Used 07/11/24 15:57 Depression Screening Interpretation: Positive Depression Screening Follow-up: Existing condition Thrive Assessment: Date of Thrive Assessment Date Thrive assessed 07/11/24 07/11/24 15:57 Currently or been in a relationship where the following occur: No concerns reported Const General: cooperative, comfortable, no acute distress, alert and awake; No confusion Orientation/consciousness: oriented to person, oriented to place, patient oriented x3 and No confusion HENMT Head: Yes normocephalic Ears: external ears normal and TM's normal bilaterally Face and sinus: No sinus tenderness Mouth: Normal oral and palatal mucosa present and tongue normal Teeth and gingiva: dentition normal and gingiva normal Throat: Yes posterior oropharynx normal, Yes tonsils normal and Yes uvula midline Eyes Conjunctivae: conjunctivae normal Sclerae: sclerae normal Pupils: Equal, round and reactive pupils present EOM: EOMs intact bilaterally Direct Ophthalmoscopy: No no photophobia Neck Neck: Yes no lymphadenopathy, No tender and Yes no JVD Thyroid: Thyroid normal Carotids: no bruits Chest Chest palpation & inspection: no tenderness Resp Effort & Inspection: normal respiratory effort, no audible wheezes, not labored and no stridor Auscultation: no crackles, no rales, no rhonchi and no wheezes Cardio Jugular venous distension: no JVD Rate: regular rate, not bradycardic and not tachycardic Rhythm: regular rhythm Bruits: no carotid bruits Peripheral pulses: Peripheral pulses 2+ throughout GI Inspection: Yes normal to inspection, No abdominal wall ecchymosis and No visible herniation Palpation (GI): Soft to palpation, nontender, no guarding, not rigid and No hepatosplenomegaly present Auscultation: normoactive bowel sounds General: Yes no CVA tenderness Back/Spine/Pelvis Back: no CVA tenderness and No back tenderness Cervical Spine: cervical ROM normal Thoracic/Lumbar Spine: thoracic and lumbar spine normal to inspection, straight leg raise negative bilaterally, No thoraco-lumbar ROM limited and No lumbar spinal tenderness Skin Lesions: no lesions Rashes: no rashes Wounds: no wounds Neuro General: oriented to person, oriented to place, patient oriented x3, CN's II-XI intact bilaterally and No confusion Cranial nerves: Yes Equal, round and reactive pupils present and Yes Normal accommodation reflex present Cognition (Neuro): normal cognition Speech: No Abnormal speech present Gait exam (Neuro): Normal gait present Motor exam (neuro): 5/5 motor strength present throughout Extrem Right upper extremity: full ROM; no cyanosis Left upper extremity: full ROM; no cyanosis Right lower extremity: no edema Left lower extremity: no edema Psych Appearance: grossly normal Mental Status: mental status grossly normal Affect: normal affect Attitude: cooperative Thought process: Normal thought process present Office Procedures Flu Questionnaire Does the patient have a severe egg allergy?: No Does the patient have severe life threatening allergies?: No Does the patient have a fever or illness today?: No Has the patient ever had Guillain-Somerset Syndrome?: No Has the patient ever had any past reaction to a flu shot?: No Immunizations Fluarix Triv [id number] (PF) 45 mcg (15 mcg x 3)/0.5 mL IM syringe Performing Provider: Dell Gold PA-C [place] [facility] [place] [facility] Documented (not given) by: DALE Levine on 07/11/24 16:08 Reason Not Given: Patient Refused Coding Level of Care Code Est Pt Prev Care 18-39y(99431) Diagnoses Annual physical exam Z00.00 Borderline high cholesterol E78.9 Class 3 obesity E66.813 Mild intermittent asthma without complication J45.20 Asthma severity: mild Asthma persistence: intermittent Asthma complication type: uncomplicated Nephrolithiasis N20.0 Additional Codes KEITH-7 Assessment Billing - KEITH-7 Assessment Tool: KEITH-7 Assessment 36504 ([id number]) PHQ-9 - 95561 - PHQ-9 Billing: Yes ([id number]) Asthma Control Questionnaire - ACT Interpretation: Negative ([id number]) Assessment & Plan Assessment & Plan (1) Annual physical exam: Code(s): Z00.00 - Encounter for general adult medical examination without abnormal findings Category: Medical Plan: As per HPI (2) Borderline high cholesterol: Code(s): E78.9 - Disorder of lipoprotein metabolism, unspecified Category: Medical Plan: Patient has a history of borderline high cholesterol and very elevated triglycerides. Will recheck fasting lipids (3) Class 3 obesity: Code(s): E66.813 - Obesity, class 3 Category: Medical Plan: Patient does understand his BMI is over 40 and will work on being more physically active and adapting to better eating habits to reduce his weight. (4) Asthma: Code(s): J45.909 - Unspecified asthma, uncomplicated Category: Medical Qualifiers: Asthma severity: mild Asthma persistence: intermittent Asthma complication type: uncomplicated Qualified Code(s): J45.20 - Mild intermittent asthma, uncomplicated Plan: Patient reports his asthma has been well controlled without any need for regular use of an albuterol inhaler. Did have a recent episode of bronchitis due to a virus though has recovered well. He denies any nighttime awakenings with asthma symptoms or asthma exacerbations (5) Nephrolithiasis: Code(s): N20.0 - Calculus of kidney Category: Medical Plan: Patient continues to follow urology, has had a recent renal ultrasound in his awaiting radiologist who results. He has not had any recent renal colic. Orders: Orders Influenza [id number] Immunization 07/11/24 Z23 - Encounter for immunization Lipid Panel 07/11/24 E78.9 - Disorder of lipoprotein metabolism, unspecified Complete Blood Count no Diff 07/11/24 J45.20 - Mild intermittent asthma, uncomplicated Comprehensive [place]. Panel Fast 07/11/24 Z13.1 - Encounter for screening for diabetes mellitus
[2024-07-11 16:07] VITALS: BP 128/86; PULSE 104; O2SAT 97; BMI 44.5
== END 2024-07-11 16:28 | disposition home or self-care (01) ==
PROVIDERS: PCP Physician Assistant; Visit Provider Physician Assistant
DX: Z23 Encounter for immunization (principal)

== ENCOUNTER 2024-09-01 15:02 | Outpatient (AMB) | payer BC, SELFPAY ==
--- NOTE | 2024-09-01 15:30 | A.OFFVIS_ITS ---
Intake Visit Reasons: 1y/US Intake Note: Patient is Present for Follow Up Ultrasound Urology Medication: None Antibiotic Allergies: None Blood Thinners: None Allergies No Known Allergies Allergy (Verified 07/11/24 16:14) Medication List - Last Reconciled 09/01/24 by Laila Day MD pyridoxine (vitamin B6) 100 mg PO DAILY HPI Comments Details: 09/01/24--Kyle is a 39-year-old male who is here due to history of kidney stones. He states he has been doing well since last visit. Denies hematuria, renal colic episodes. Reviewed renal US--06/21/24--0.7 cm RIGHT renal lower pole calculus. No hydronephrosis. Discussed options conservative vs therapy to include ESWL. DiscusI have discussed diet modification to decrease risk of forming more kidney stones. I have discussed low oxalate diet and specific foods to avoid including certain green leafy vegetables, chocalate, nuts, tea, beets, rubarb; low sodium, decreased use of animal protein and the importance of hydration drinking up to 2-2.5 liters of fluids and use of adding lemon to water to increase citrate in the diet. A pamphlet is also provided today. 30 minutes spent in review of records pertaining to this visit and including [id number] discussion with the patient and documentation of this visit. At this time he wants to continue to monitor Right kidney stone. ESWL pamphlet provided. Cont Vit B6 100 mg dailt 09/01/23---Kyle is a 38-year-old male who is here due to history of kidney stones. The patient was seen in the emergency room in May 2023 with left flank pain. CT imaging at that time noted a 4.5 mm distal left ureteral stone. The patient states he passed the stone. He states that he had 1 other episode of kidney stone attack about a year ago. He had a renal ultrasound in July 2023 which noted bilateral nephrolithiasis. The patient states he is asymptomatic he has not interested in any procedures at this time. I have discussed metabolic workup he wants to hold on this. Renal ultrasound-07/30/2023-bilateral nephrolithiasis no hydronephrosis CTAP- 05/29/23-- 4.5 mm left ureteral stone, 4mm right renal stone. Plan will [id number] in 1 year with renal ultrasound prior [facility] Medical History Gallstone Sacrococcygeal pilonidal cyst Nephrolithiasis Surgical History History of excision of pilonidal cyst Family History Father No problems noted. Mother Medical history unknown Maternal Grandfather CAD (coronary artery disease) Social History Housing: House Alcohol intake: never Patient Tobacco Use Status: Never used Tobacco Tobacco use type: Cigarette e-Cigarette/Vaping Use: Never Used Second Hand Smoke Exposure: No service: No Current occupational status: employed Current occupation: [employer] Cognitive needs: No Hearing needs: No Vision needs: No Review of Systems Const All systems reviewed & are unremarkable except as noted in HPI and below Reports no additional complaints Eyes Reports no additional complaints ENT Reports no additional complaints Card Reports no additional complaints Resp Reports no additional complaints GI Reports no additional complaints Reports as per HPI Musc Reports no additional complaints Skin/Breast Reports system reviewed and no additional complaints, except as documented Neuro Reports no additional complaints Psych Reports no additional complaints Endo Reports no additional complaints Azar/Lymph Reports no additional complaints Aller/Immun Reports no additional complaints Results AMB Urinalysis, Automated UA Leukoctes 0 Hortencia/uL Last Edit by CYNTHIA Tejada on 09/01/24 15:50 UA Nitrite Negative Last Edit by Flaca Ochoa [facility] on 09/01/24 15:50 UA Urobilinogen 0.2 mg/dL Last Edit by Flaca Ochoa [facility] on 09/01/24 15:5 0 UA Protein 15 mg/dL Last Edit by Flaca Ochoa [facility] on 09/01/24 15:50 UA pH 6.0 Last Edit by Flaca Ochoa [facility] on 09/01/24 15:50 UA Blood 0 Rashard/uL Last Edit by Flaca Ochoa [facility] on 09/01/24 15:50 UA Specific Seibert 1.020 Last Edit by Flaca Ochoa, CYNTHIA on 09/01/24 15: 50 UA Ketone Negative Last Edit by THEODORE TejadaA on 09/01/24 15:50 UA Bilirubin 0 mg/dL Last Edit by Flaca Ochoa, RMA on 09/01/24 15:50 UA Glucose 0 mg/dL Last Edit by Flaca Ochoa, A on 09/01/24 15:50 Results Reviewed Results Reviewed: Laboratory Last Values Urine pH (Auto) 6.0 09/01/24 15:37 Specific Seibert (Auto) 1.020 09/01/24 15:37 Urine Protein (Auto) 15 mg/dL 09/01/24 15:37 Glucose (UA)(Auto) 0 mg/dL 09/01/24 15:37 Urine Ketones (Auto) Negative 09/01/24 15:37 Urine Blood (Auto) 0 Rashard/uL 09/01/24 15:37 Urine Nitrite (Auto) Negative 09/01/24 15:37 Urine Bilirubin (Auto) 0 mg/dL 09/01/24 15:37 Urine Urobilinogen (Auto) 0.2 mg/dL 09/01/24 15:37 Leukocyte Esterase (Auto) 0 Hortencia/uL 09/01/24 15:37 Date of Service: 06/21/24 US RETROPERITONEAL LIMITED (RENAL ONLY) CLINICAL INFORMATION: Calculus of kidney. COMPARISON: Ultrasound abdomen limited 04/02/2024. Renal ultrasound 07/30/2023. CT abdomen and pelvis 05/29/2023. X-ray abdomen KUB 06/01/2020. TECHNIQUE: Real-time imaging of the kidneys. Limited visualization due to bowel gas. FINDINGS: RIGHT KIDNEY: 11.8 x 5.6 x 5.9 cm (SAG x AP x TRV). No hydronephrosis. RIGHT renal 0.7 cm lower pole calculus. Renal cortical thickness is normal. Limited visualization. LEFT KIDNEY: 11.3 x 6.0 x 5.4 cm (SAG x AP x TRV). No hydronephrosis. No renal calculi. Renal cortical thickness is normal. Limited visualization. IMPRESSION: 0.7 cm RIGHT renal lower pole calculus. No hydronephrosis. Limited visualization.. Date of Service: 07/30/23 EXAMINATION: US RETROPERITONEAL LIMITED (RENAL ONLY) CLINICAL INFORMATION: Calculus of kidney. COMPARISON: CT abdomen and pelvis 05/29/2023. X-ray KUB 06/01/2020. TECHNIQUE: Real-time imaging of the kidneys. Limited visualization due to bowel gas. FINDINGS: RIGHT KIDNEY: 12.7 x 5.9 x 6.8 cm (SAG x AP x TRV). No hydronephrosis. Lower pole 0.8 cm calculus. Renal cortical thickness is normal. Limited visualization. LEFT KIDNEY: 11.7 x 5.7 x 6.4 cm (SAG x AP x TRV). No hydronephrosis. There is a 0.4 cm lower pole calculus. Renal cortical thickness is normal. Limited visualization. ADDITIONAL FINDINGS: Incidental note on limited views of the liver of diffuse increase in echogenicity of the liver, characteristic of primary hepatocellular disease, possibly due to hepatic steatosis. IMPRESSION: 1. Bilateral nonobstructive renal calculi. No hydronephrosis. 2. Incidental note on limited views of the liver of diffuse increase in echogenicity of the liver, characteristic of primary hepatocellular disease, possibly due to hepatic steatosis. Date of Service: 05/29/23 EXAMINATION: CT ABDOMEN AND PELVIS WITHOUT CONTRAST CLINICAL INFORMATION: Left flank pain with history of stones. COMPARISON: 12/16/2020 TECHNIQUE: Multidetector volumetric imaging was performed from the superior aspect of the liver through the pubic symphysis. Sagittal and coronal reformatted images were obtained on the technologist's workstation. This CT examination was performed using dose optimization techniques as appropriate, variously including the following: *Automated exposure control *Adjustment of mA and/or kV according to patient size (this includes techniques or standardized protocols for targeted exams where dose is matched to indication/reason for exam; i.e. extremities or head) *Use of iterative reconstruction technique DLP: 1158 mGy-cm FINDINGS: LUNG BASES: The visualized lung bases are unremarkable. LIVER, GALLBLADDER, AND BILIARY TREE: Relative hypoattenuation of the hepatic parenchyma is consistent with steatosis. Focal fatty sparing is noted around the gallbladder fossa and at the hepatic segment 1. No appreciable hepatic lesions. Liver is borderline enlarged, measuring 20 cm craniocaudal. Hepatic contour is normal. Gallstones are suspected in the gallbladder. No appreciable gallbladder wall thickening or surrounding pericholecystic fluid. No biliary ductal dilatation. PANCREAS: Unremarkable. SPLEEN: Unremarkable. ADRENAL GLANDS: Unremarkable. KIDNEYS AND URETERS: Within a right lower renal pole calyx, there is a small irregular calculus measuring 4 mm in diameter, possibly a cluster of 2 adjacent calculi. No additional renal calculi are identified. The kidneys are normal in size, shape, and attenuation. No there is there is mild left hydroureteronephrosis with periureteral fat stranding due to a 4.5 mm calculus at the left distal ureter at the ureterovesical junction. No additional ureteral calculi. BLADDER: Unremarkable. GASTROINTESTINAL TRACT: Stomach, small bowel, and colon are normal in caliber. No bowel wall thickening or surrounding inflammatory changes. Appendix is normal. No intraperitoneal free fluid or free air. ABDOMINAL WALL: No significant hernia is appreciated. LYMPH NODES: Normal. VASCULAR: Unremarkable. PELVIC VISCERA: Unremarkable. OSSEOUS STRUCTURES: There is transitional anatomy at the lumbosacral junction with a partially lumbarized S1. No acute osseous findings. Mild osteoarthritis in the hips and SI joints. There is a prominent left paracentral disc protrusion at L5-S1 which narrows the central canal. IMPRESSION: 1. A 4.5 mm calculus at the left distal ureter produces mild left hydroureteronephrosis. 2. A 4 mm nonobstructing renal calculus in the right lower renal pole. 3. Hepatic steatosis. 4. Cholelithiasis without evidence of acute cholecystitis. Assessment & Plan Assessment & Plan (1) Nephrolithiasis: Code(s): N20.0 - Calculus of kidney Category: Medical Plan Follow-up in 1 year, renal ultrasound prior Vit B6 daily Orders: Orders AMB Urinalysis Automated Today Z13.9 - Encounter for screening, unspecified Medications: New pyridoxine (vitamin B6) 100 mg PO DAILY 90 tabs 3RF Patient Instructions: The patient had an opportunity to ask questions regarding treatment plan. The patient expressed understanding and agreement with the above treatment plan. The patient is aware they should contact our office by phone for worsening of their current condition or the appearance of new symptoms. Compliance is encouraged with any medications and followup testing that is ordered. It is a privilege to be allowed the opportunity to participate in the urologic care of your patient. If you have any questions or concerns regarding treatment for the above conditions please do not hesitate to contact me. The office telephone contact is [phone]. This note is constructed in part using voice recognition software. While every effort has been made to ensure accuracy motor vehicle examiner errors may have been included. Yours sincerely, Laila Day MD Coding Level of Care Code Complex EM visit Add On G2211 Diagnoses Nephrolithiasis N20.0
== END 2024-09-01 16:21 | disposition home or self-care (01) ==
PROVIDERS: PCP Physician Assistant; Visit Provider Urology
DX: N20.0 Calculus of kidney (principal); Z13.9 Encounter for screening, unspecified

== ENCOUNTER → 2024-09-01 15:02 | Outpatient (BNVA) | payer BC, SELFPAY | PROVIDERS: PCP Physician Assistant; Visit Provider Urology | DX: N20.0 Calculus of kidney (principal) | CPT/HCPCS: 81003 ==

== ENCOUNTER → 2025-02-09 08:21 | Outpatient (BNV) | payer BC, SELFPAY | PROVIDERS: Emergency Provider Emergency Medicine; PCP Physician Assistant; Visit Provider Radiology Diagnostic Radiology | DX: M79.662 Pain in left lower leg (principal) | CPT/HCPCS: 73590; 93971 ==

== ENCOUNTER 2025-02-09 08:49 | Emergency (ER) | payer BC, SELFPAY ==
--- NOTE | ~2025-02-09 | XR_ITS ---
EXAMINATION: XR TIBIA AND FIBULA, LEFT CLINICAL INFORMATION: Left leg pain. COMPARISON: None available. TECHNIQUE: AP and lateral views of the left tibia and fibula were obtained. FINDINGS: The bones and soft tissues are normal. No fracture. Imaged joints appear normal. No osseous lesions. XR/XR tibia fibula LT 2V IMPRESSION: Normal left tibia and fibula. Electronically signed by: Chon Briggs MD 02/09/2025 09:26 AM EDT
--- NOTE | ~2025-02-09 | US_ITS ---
EXAMINATION: US TRIPLEX LOWER EXTREMITY, LEFT CLINICAL INFORMATION: Calf pain, rule out DVT.? Achilles tear or rupture. COMPARISON: None available. TECHNIQUE: Color-flow triplex imaging with spectral analysis and compression Doppler were performed on the left lower extremity. FINDINGS: Respiratory variation, normal compression and augmented flow are noted throughout the left lower extremity. The visualized common femoral vein, superficial femoral vein, profunda femoral vein, popliteal vein and midcalf peroneal and posterior tibial venous segments show no evidence of deep venous thrombosis. There is no Gasca's cyst. There is no sonographic evidence of Achilles tear or rupture. The Achilles tendon appears intact sonographically. US/US venous duplex LE IMPRESSION: 1. No evidence of deep venous thrombosis involving the left lower extremity. 2. The left Achilles tendon appears sonographically intact. Electronically signed by: Chon Briggs MD 02/09/2025 10:25 AM EDT
[2025-02-09 08:53] VITALS: BP 162/107; PULSE 87; RESP 16; O2SAT 98; BMI 44.3
--- NOTE | 2025-02-09 09:45 | ED_ITS ---
HPI - General Adult General Chief complaint: Extremity Injury, Lower Stated complaint: L Leg Pain ?Tendon Time Seen by Provider: 02/09/25 09:15 Source: patient Mode of arrival: ambulatory Limitations: no limitations History of Present Illness ED Provider: Jeremy Reis HPI narrative: 39-year-old male history of gallstones, borderline high cholesterol, and asthma presents to ED for left calf pain that began this morning. Patient states this morning you were doing stretches with his and where he got on his tippy- toes and stretched you heard a pop in his left calf and was unable immediately to bear weight. Patient has heard a loud popping sound. Patient denies any chest pain shortness of breath or blunt trauma. Patient denies any recent long travel recent surgery. Patient denies any history of blood clots. Related Data Previous Rx's ?Medication ?Instructions ?Recorded pyridoxine (vitamin B6) 100 mg 100 mg PO DAILY #90 tab s 09/01/24 tablet ketorolac 10 mg tablet 10 mg PO Q6H PRN pain #20 ta bs 02/09/25 Allergies Allergy/AdvReac Type Severity Reaction Status Date / Time No Known Allergies Allergy Verified 02/09/25 08:56 Review of Systems Review of Systems: Left calf pain heard a pop Yes all other systems are reviewed and are negative [facility] Past Medical History Medical History Gallstone Sacrococcygeal pilonidal cyst Nephrolithiasis Surgical History History of excision of pilonidal cyst Family History Family History Father No problems noted. Mother Medical history unknown Maternal Grandfather CAD (coronary artery disease) Social History Social History Housing: House Alcohol intake: never Patient Tobacco Use Status: Never used Tobacco Tobacco use type: Cigarette e-Cigarette/Vaping Use: Never Used Second Hand Smoke Exposure: No Advance Directives: No Advance Directives Information Provided: Yes Do you have a plan to hurt others: No Plan service: No Current occupational status: employed Current occupation: [employer] Cognitive needs: No Hearing needs: No Vision needs: No Physical Exam ED Vital Signs: Vital Signs - 24 hr 02/09/25 08:53 02/09/25 10:00 Temperature 98.4 F Pulse Rate 87 90 Respiratory Rate 16 16 Blood Pressure 162/107 H 146/106 H Pulse Oximetry 98 98 Oxygen Delivery Method Room Air Room Air BMI result Body Mass Index 44.3 Const General: cooperative, healthy appearing, comfortable, no acute distress, well developed, alert, awake and Physically active Orientation/consciousness: patient oriented x3 HENMT Head: Yes normal to inspection, Yes No palpable skull fracture present, Yes normocephalic and Yes atraumatic Eyes General: appearance normal, both eyes and all related structures Neck Neck: Yes normal visual inspection, Yes full ROM, Yes no lymphadenopathy, Yes no meningeal signs, Yes trachea midline, Yes supple, No anterior neck swelling and No tender Chest Chest palpation & inspection: normal inspection of the chest and normal palpation of entire chest wall Resp Effort & Inspection: normal respiratory effort and able to speak in complete sentences Auscultation: clear to auscultation bilaterally Cardio Jugular venous distension: no JVD Heart sounds: S1 normal heart sound present and S2 normal heart sound present GI Inspection: Yes normal to inspection Palpation (GI): Soft to palpation, not firm, nontender, no guarding and not rig id General: Yes no CVA tenderness Back/Spine/Pelvis Back: no CVA tenderness and No back tenderness Skin General skin exam: no rashes or lesions noted, elasticity normal and turgor normal Neuro General: patient oriented x3, gait normal, tone normal, moves all extremities, Normal light touch and pain sensation, no meningeal signs, no focal motor deficits, CN's II-XI intact bilaterally and normal sensation to monofilament Extrem General: Yes normal to inspection, Yes full ROM and Yes capillary refill normal Psych Appearance: grossly normal, well kempt and not disheveled Medications Administered Discontinued Medications Generic Name Dose Route Start Last Admin Trade Name Freq PRN Reason Stop Dose Admin Ketorolac Tromethamine 30 mg 02/09/25 09:42 02/09/25 09:52 Ketorolac Tromethamine 30 Mg/Ml Vial IM 02/09/25 09:43 30 mg ONCE ONE Administration Medical Decision Making Medical Decision Making [facility] Narrative: 39-year-old male presents to the ED for left calf pain after hearing a pop while stretching on his Tippy toes with . Patient is unable to bear weight. Patient has calf tenderness on palpation. Negative for any signs of obvious Achilles tendon rupture. Albarran test negative but will do vascular and nonvascular ultrasound. Toradol ordered. 11:14pm: Ultrasound negative for DVT and negative for Achilles tendon rupture. Suspect calf muscle tear on exam. Patient will be placed in a tall walking boot and crutches. Patient informed necessity to follow up with primary care and orthopedics for MRI for further evaluation. Patient discharged with pain medication. Patient explained worrisome signs and informed to return to the ED immediately. Not suspecting DVT, PE, compartment syndrome, arterial occlusion, osteomyelitis, necrotizing fasciitis, or any other life-threatening etiology Differential Diagnosis Differential Diagnoses: The differential diagnosis associated with the presentation includes (calf tear, achilles tear, strain) Admission/Observation Consideration of admission/observation: Escalation of care including admission/observation considered Independent Interpretation I performed an independent interpretation of an: Plain X-Ray and Ultrasound Radiology Impression Discussion of test interpretation with radiology: I have reviewed the radiologist's reading. (patient) Independent Historian Clinical information obtained from an independent historian. History obtained from or confirmed by: Other (patient) Prescription Management I considered prescription management with: Pain Medication Discharge Plan Discharge Clinical Impression: Strain of left calf muscle Patient Disposition: Home, Self-Care Instructions: Crutch Instructions (ED), Leg Pain (ED), Walking Boot (ED) Additional Instructions: Return to the ED immediately for any swelling, redness, bluish black discoloration, stiffness, fever, chills, numbness/tingling, or any other concerning symptoms. Recommend follow-up with your primary care provider or [facility]. Most likely you will need an MRI to rule out calf muscle tear. Do not take any other take any other NSAID such as naloxone, Motrin, Aleve, meloxicam while taking ketorolac. [address] [address] Ultrasound Report Signed Patient: Kyle Garber MR#: [id number] : 1985 Acct:[id number] Age/Sex: 39 / M ADM Date: 02/09/25 Loc: HO.ED Attending Dr: Ordering Physician: Jeremy Reis Date of Service: 02/09/25 Procedure(s): US venous duplex LE LT Accession Number(s): [id number] cc: Jeremy Reis; Dell Gold PA-C~ EXAMINATION: US TRIPLEX LOWER EXTREMITY, LEFT CLINICAL INFORMATION: Calf pain, rule out DVT.? Achilles tear or rupture. COMPARISON: None available. TECHNIQUE: Color-flow triplex imaging with spectral analysis and compression Doppler were performed on the left lower extremity. FINDINGS: Respiratory variation, normal compression and augmented flow are noted throughout the left lower extremity. The visualized common femoral vein, superficial femoral vein, profunda femoral vein, popliteal vein and midcalf peroneal and posterior tibial venous segments show no evidence of deep venous thrombosis. There is no Gasca's cyst. There is no sonographic evidence of Achilles tear or rupture. The Achilles tendon appears intact sonographically. US/US venous duplex LE LT IMPRESSION: 1. No evidence of deep venous thrombosis involving the left lower extremity. 2. The left Achilles tendon appears sonographically intact. Electronically signed by: Chon Briggs MD 02/09/2025 10:25 AM [facility] [employer] [place] [address] XRay Report Signed Patient: Kyle Garber MR#: [id number] : 1985 Acct:[id number] Age/Sex: 39 / M ADM Date: 02/09/25 Loc: .ED Attending Dr: Ordering Physician: Janel Fischer DO Date of Service: 02/09/25 Procedure(s): XR tibia fibula LT 2V Accession Number(s): [id number] cc: Janel Fischer DO; Dell Gold PA-C~ EXAMINATION: XR TIBIA AND FIBULA, LEFT CLINICAL INFORMATION: Left leg pain. COMPARISON: None available. TECHNIQUE: AP and lateral views of the left tibia and fibula were obtained. FINDINGS: The bones and soft tissues are normal. No fracture. Imaged joints appear normal. No osseous lesions. XR/XR tibia fibula LT 2V IMPRESSION: Normal left tibia and fibula. Electronically signed by: Chon Briggs MD 02/09/2025 09:26 AM EDT RP Dictated By: Chon Briggs MD Signed By: <Electronically signed by Chon Briggs MD in OV> 02/09/25 09 Prescriptions: New ketorolac 10 mg tablet 10 mg PO Q6H PRN (Reason: pain) Qty: 20 0RF Rx Instructions: patient received 30mg IM toradol shot in the ED No Action pyridoxine (vitamin B6) 100 mg tablet 100 mg PO DAILY Qty: 90 3RF Referrals: [facility] [Provider Group, Orthopedics] - 2 days Referral Note: Positive left calf strain. We will need MRI to rule out calf muscle tear. Clinical Impression: Strain of left calf muscle Dell Gold PA-C [Primary Care Provider, Internal Medicine] - 2 days Referral Note: Calf strain possible calf muscle tear will need MRI Clinical Impression: Strain of left calf muscle Stand Alone Forms: Work/School Release Interventions: ED Discharge Assessment Last Done: 02/09/25 11:33 Discharge Date/Time: 02/09/25 11:40 Print Language: Occitan
[2025-02-09 10:00] VITALS: BP 146/106; PULSE 90; RESP 16; TEMP 36.9; O2SAT 98
[2025-02-09 11:33] VITALS: BP 146/106; PULSE 90; RESP 16; TEMP 36.9; O2SAT 98
== END 2025-02-09 11:40 | disposition home or self-care (01) ==
PROVIDERS: Emergency Provider Emergency Medicine; PCP Physician Assistant
DX: S86.812A Strain of other muscle(s) and tendon(s) at lower leg level, left leg, initial encounter (principal); X50.9XXA Other and unspecified overexertion or strenuous movements or postures, initial encounter; M79.662 Pain in left lower leg; Y93.89 Activity, other specified; Y92.9 Unspecified place or not applicable; Y99.0 Civilian activity done for income or pay
CPT/HCPCS: 73590; 93971; 96372; 99284; J1885

== ENCOUNTER 2025-02-12 10:28 | Outpatient (AMB) | payer BC, SELFPAY ==
--- NOTE | 2025-02-12 10:46 | A.OFFPC_ITS ---
Vital Signs 02/12/25 10:47 Height 5 ft 9 in Weight 305 lb BMI 45.0 BP 150/90 H Blood Pressure Location Lt brachial Position Sitting Pulse 100 Pulse Source Pulse Oximeter Pulse Oximetry (%) 96 Oxygen Delivery Method Room Air Intake Visit Reasons: ED 02/10 LT leg inj. [employer] Required: No Accompanied by: Spouse Allergies No Known Allergies Allergy (Verified 02/12/25 11:19) Medication List - Last Reconciled 02/12/25 by Yordy Stevenson MD ketorolac 10 mg PO Q6H PRN pyridoxine (vitamin B6) 100 mg PO DAILY Tobacco use date assessed: 02/12/25 Dental Screening Dental Screen Date: 02/12/25 Did you have a dental visit in the last 12 months?: Yes Did you have a dental problem in the last 6 months where you did not have access to dental care?: No Was dental information given to patient?: Patient has dentist HPI ED 02/10 LT leg inj. HPI Details Patient comes in today for follow up of his recent left leg injury He was reportedly doing some stretching exercises with his a few days ago and tried to stand up on his toes when he suddenly felt/heard a loud pop over his left calf area that was followed immediately by increased pain over his left calf muscle He was then unable to bear any weight on his left leg due to the severe pain in his left calf and immediately went to the ER for further evaluation Work ups done in the ER include a venous doppler of the left lower leg, which came out negative for DVT, and left lower leg x-rays, which came out negative He was given a shot of Toradol in the ER to help relieve his pain at the time and was sent home with Rx for some Toradol tablets He was instructed to follow up with his PCP and see about getting an MRI of his left leg to help assess for any calf muscle rupture and also to get a referral to orthopedics for further management Patient states that his left leg pain is slightly decreased at this time but he is still unable to bear any weight with his left leg He denies any other acute complaints or symptoms at this time [facility] Medical History Gallstone Sacrococcygeal pilonidal cyst Nephrolithiasis Surgical History History of excision of pilonidal cyst Family History Father No problems noted. Mother Medical history unknown Maternal Grandfather CAD (coronary artery disease) Social History Housing: House Alcohol intake: never Patient Tobacco Use Status: Never used Tobacco e-Cigarette/Vaping Use: Never Used Second Hand Smoke Exposure: No service: No Current occupational status: employed Current occupation: [email or web address] Current occupational exposures/hazards: No Cognitive needs: No Hearing needs: No Vision needs: No Questionnaire PHQ-9 Over the last 2 weeks, how often have you been bothered by any of the following problems? 1. Little interest or pleasure in doing things: not at all 2. Feeling down, depressed, or hopeless: not at all 3. Trouble falling or staying asleep, or sleeping too much: nearly every day 4. Feeling tired or having little energy: several days 5. Poor appetite or overeating: several days 6. Feeling bad about yourself - or that you are a failure or have let yourself or your family down: not at all 7. Trouble concentrating on things, such as reading the newspaper or watching television: several days 8. Moving or speaking so slowly that other people could have noticed. Or the opposite - being so fidgety or restless that you have been moving around a lot more than usual: not at all 9. Thoughts that you would be better off or of hurting yourself in some way: not at all Total score: 6 Depression Screening Interpretation: Positive Depression Screening Follow-up: Existing condition and Follow-up Visit Requested Depression Screening Done: Yes 24477 - PHQ-9 Billing: Yes Source: Developed by Drs. Michael Phelan, Stephanie Ferro, Tio Reilly and colleagues, with an educational alvin from [email or web address]. Thrive Questionnaire Date Thrive assessed: 02/12/25 I am a: Patient What is your living situation today?: I have a steady place to live Within the past 12 months, did the food you bought not last and you didn't have the money to get more?: I choose not to answer this question Within the past 12 months, did you worry whether your food would run out before you got money to buy more?: I choose not to answer this question Do you have trouble paying for medicines?: No Do you have trouble getting transportation to medical appointments?: No Do you have trouble paying your heating and electricity bill?: No Do you have trouble taking care of your child, family member or friend?: No Do you have trouble with day-to-day activities such as bathing, preparing meals, shopping, managing finances, etc.?: No Are you currently unemployed and looking for a job?: No Are you interested in more education?: No Please select the resources that you would like help with: None Currently or been in a relationship where the following occur: No concerns reported THRIVE Score: 0 AUDIT C Alcohol Use Questionnaire (AUDIT-C) 1. How often do you have a drink containing alcohol?: Never 3. How often do you have six or more drinks on one occasion?: Never Total Score: 0 Score Reviewed/Action Taken: Yes KEITH-7 AMB Questionnaire KEITH-7 Date KEITH - 7 assessed: 07/11/24 Source: Developed by Drs. Michael Phelan, Stephanie Ferro, Tio Reilly and colleagues, with an educational alvin from [email or web address]. Review of Systems Const Denies chills, Denies fatigue, Denies fever(s) and Denies headache(s) ENT Denies dysphagia, Denies dizziness, Denies headache(s), Denies neck pain and Denies sore throat Card Denies chest pain, Denies palpitations and Denies dyspnea Resp Denies chest congestion, Denies cough and Denies dyspnea GI Denies abdominal pain, Denies constipation, Denies dysphagia, Denies heartburn, Denies diarrhea, Denies nausea and Denies vomiting Denies difficulty urinating, Denies dysuria and Denies nocturia Musc Details: increased pain over the left calf muscle Reports as per HPI and Denies neck pain Neuro Denies dizziness and Denies headache(s) Endo Denies fatigue and Denies palpitations Physical exam (Primary Care) Vital Signs: Last Vital Signs Pulse 100 02/12/25 10:47 BP 150/90 H 02/12/25 10:47 Pulse Ox 96 02/12/25 10:47 Oxygen Delivery Method Room Air 02/12/25 10:47 BMI result Body Mass Index 45.0 Tobacco/Smoking Status: Tobacco use Status Tobacco use date assessed 02/12/25 02/12/25 10:52 Patient Tobacco Use Status Never used Tobacco 02/12/25 10:52 Tobacco use type 02/12/25 10:52 e-Cigarette/Vaping Use Never Used 02/12/25 10:52 Depression Screening Interpretation: Positive Depression Screening Follow-up: Existing condition and Follow-up Visit Requested Thrive Assessment: Date of Thrive Assessment Date Thrive assessed 07/09/24 02/12/25 10:52 Currently or been in a relationship where the following occur: No concerns reported Const General: no acute distress and alert Neck Neck: Yes supple and No lymphadenopathy Resp Auscultation: clear to auscultation bilaterally, no rales and no wheezes Cardio Rate: regular rate Rhythm: regular rhythm Heart sounds: no murmurs GI Palpation (GI): Soft to palpation and nontender General: Yes no CVA tenderness Back/Spine/Pelvis Back: no CVA tenderness Skin Rashes: no rashes Extrem General: Yes no clubbing, cyanosis or edema Left lower extremity: lower leg Details: tenderness Location: of the posterior calf Coding Level of Care Code Est Pt Level 3 (35963) Diagnoses Pain of left lower extremity due to injury M79.605 Additional Codes PHQ-9 - 12383 - PHQ-9 Billing: Yes ([id number]) Assessment & Plan Assessment & Plan (1) Pain of left lower extremity due to injury: Code(s): M79.605 - Pain in left leg Category: Medical Plan: Venous doppler and x-rays of the left lower leg done at the ER a few days ago both came back normal/negative Will try sending patient for an MRI of the left lower leg to help assess/rule out any calf muscle injury or rupture and if his MRI is negative, he will likely benefit from a referral to physical therapy Will also refer him to orthopedics for further evaluation and management Plan To return as scheduled in July 2025 for his annual physical examination with his PCP Orders: Orders MR Tibia LT wo Contrast Today M79.605 - Pain in left leg Referrals Orthopedics Referral M79.605 - Pain in left leg
[2025-02-12 10:47] VITALS: BP 150/90; PULSE 100; O2SAT 96; BMI 45.0
== END 2025-02-12 11:27 | disposition home or self-care (01) ==
LOC: HO.HMCH 10:29
PROVIDERS: PCP Physician Assistant; Visit Provider Internal Medicine
DX: M79.605 Pain in left leg (principal)

== ENCOUNTER → 2025-02-12 10:28 | Outpatient (BNVA) | payer BC, SELFPAY | PROVIDERS: PCP Physician Assistant; Visit Provider Internal Medicine | DX: M79.605 Pain in left leg (principal); Z13.31 Encounter for screening for depression | CPT/HCPCS: 96127 ==

== ENCOUNTER 2025-02-15 11:25 | Outpatient (AMB) | payer OTHER, SELFPAY ==
--- NOTE | 2025-02-15 11:44 | A.OFFVIS_ITS ---
Intake Visit Reasons: ED f/u Strain of left calf muscle Intake Note: Kyle is a 39 year old male who presents today with his and a tall walking boot for a evaluation of his left calf pain, WC 02/09/25. Patient reports he was stretching his ankle and he feels like he hyperextend and felt a sharp pain behind his calf. He states that his calf is feeling better, however when he is going upstairs he feels a pulling sensation behind the calf. Allergies No Known Allergies Allergy (Verified 02/15/25 12:03) HPI HPI ED f/u Strain of left calf muscle: Details: Mr. Jerica Sher is a 39 yo male who presents to the office today for an evaluation of a left calf injury that he sustained on 02/09/25 while he was at work. He states that he was doing stretching with a group of employees and over extended his calf and a to P toe position. He felt a snapping sensation and immediate pain. He was unable to ambulate after that time. He presented to the emergency department where an ultrasound was obtained and negative for Achilles tendon rupture. He was given a tall walking boot and instructed to follow up with orthopedics outpatient for further evaluation and treatment. [facility] Medical History Gallstone Sacrococcygeal pilonidal cyst Nephrolithiasis Surgical History History of excision of pilonidal cyst Family History Father No problems noted. Mother Medical history unknown Maternal Grandfather CAD (coronary artery disease) Social History Housing: House Alcohol intake: never Patient Tobacco Use Status: Never used Tobacco e-Cigarette/Vaping Use: Never Used Second Hand Smoke Exposure: No service: No Current occupational status: employed Current occupation: [employer] Current occupational exposures/hazards: No Cognitive needs: No Hearing needs: No Vision needs: No Review of Systems Const All systems reviewed & are unremarkable except as noted in HPI and below Physical Exam Const General: cooperative, healthy appearing and no acute distress Resp Effort & Inspection: normal respiratory effort and able to speak in complete sentences Extrem Other: Left calf no pain with calf squeeze. Calf is supple. He has 1 area along the medial aspect of the gastroc muscle that he can pinpoint pain. He has no tenderness to palpation over the Achilles attachment insertion. No palpable defect over the Achilles tendon. Able to dorsiflex and plantar flex. Sensation intact. Pedal pulse intact. Assessment & Plan Assessment & Plan (1) Gastrocnemius strain, left: Code(s): S86.112A - Strain of other muscle(s) and tendon(s) of posterior muscle group at lower leg level, left leg, initial encounter Category: Medical Plan Mr. Jerica Sher is a 39 yo male who presents to the office today for an evaluation of a left calf injury that he sustained on 02/09/25 while he was at work. He states that he was doing stretching with a group of employees and over extended his calf and a to P toe position. He felt a snapping sensation and immediate pain. He was unable to ambulate after that time. He presented to the emergency department where an ultrasound was obtained and negative for Achilles tendon rupture. He was given a tall walking boot and instructed to follow up with orthopedics outpatient for further evaluation and treatment. While in the office today, we discussed the treatment plan for a gastroc strain would include using a tall walking boot and attending physical therapy. A physical therapy order has been placed while in the office today. He was placed back into the tall walking boot. The goal will be to get him out of the walking boot in the next 4 weeks with physical therapy. He will be out of work until follow up due to the [employer] job requirements. He will follow up in 4 weeks, sooner if needed. Ultrasound of the left lower extremity obtained on 02/09/2025: IMPRESSION: 1. No evidence of deep venous thrombosis involving the left lower extremity. 2. The left Achilles tendon appears sonographically intact. X-ray of the left tib/fib obtained on 06/08/2025: IMPRESSION: Normal left tibia and fibula. Coding Level of Care Code Est Pt Level 3 (54532) Diagnoses Gastrocnemius strain, left S86.112A
== END 2025-02-15 12:20 | disposition home or self-care (01) ==
PROVIDERS: PCP Physician Assistant; Visit Provider Physician Assistant
DX: S86.112A Strain of other muscle(s) and tendon(s) of posterior muscle group at lower leg level, left leg, initial encounter (principal)
CPT/HCPCS: 99213

== ENCOUNTER → 2025-02-15 11:25 | Outpatient (BNVA) | payer BC, SELFPAY | PROVIDERS: PCP Physician Assistant; Visit Provider Physician Assistant | DX: S86.112A Strain of other muscle(s) and tendon(s) of posterior muscle group at lower leg level, left leg, initial encounter (principal) | CPT/HCPCS: 99212 ==

== ENCOUNTER 2025-03-15 12:56 | Outpatient (AMB) | payer OTHER, SELFPAY ==
--- NOTE | 2025-03-15 12:59 | MHC.OFFVIS ---
Vital Signs 03/15/25 13:06 Height 5 ft 9 in Weight 305 lb BMI 45.0 Intake Visit Reasons: OV- Strain of left calf muscle-4 WK follow up Intake Note: Kyle is a 39 year old male who presents today for a follow up visit for his gastrocnemius strain of left lower extremity, WC DOI: 02/09/25. At last visit he was placed in a tall walking boot. He was also referred to physical therapy. Patient states that he is doing well and having little to no pain. Allergies No Known Allergies Allergy (Verified 03/15/25 13:06) HPI HPI OV- Strain of left calf muscle-4 WK follow up: Details: 39 male returns to the office today for a follow-up left calf strain date of injury 02/09/2025. The patient states he just started PT about a week ago and has attended 5 visits. Pain mainly with walking long distances or with stairs. He occasionaly has right ankle pain due to compensation. He has been out of work since the date of injury. [facility] Medical History Gallstone Sacrococcygeal pilonidal cyst Nephrolithiasis Surgical History History of excision of pilonidal cyst Family History Father No problems noted. Mother Medical history unknown Maternal Grandfather CAD (coronary artery disease) Social History Housing: House Alcohol intake: never Patient Tobacco Use Status: Never used Tobacco e-Cigarette/Vaping Use: Never Used Second Hand Smoke Exposure: No service: No Current occupational status: employed Current occupation: [employer] Current occupational exposures/hazards: No Cognitive needs: No Hearing needs: No Vision needs: No Review of Systems Const All systems reviewed & are unremarkable except as noted in HPI and below Physical Exam Vital Signs: BMI result Body Mass Index 45.0 Extrem Other: Left calf normal to Inspection with tenderness over the muscle belly of the gastroc along the medial side. He can plantar flex and dorsiflex. Neurovascularly intact Assessment & Plan Assessment & Plan (1) Gastrocnemius strain, left: Code(s): S86.112A - Strain of other muscle(s) and tendon(s) of posterior muscle group at lower leg level, left leg, initial encounter Category: Medical Plan: The patient will continue to work with physical therapy to work on motion, stretching heel cord stretching and strengthening exercises. He should begin to wean from the boot as symptoms allow. He will continue to remain out of work until his next appointment in 6 weeks, sooner if needed. Coding Level of Care Code Est Pt Level 3 (33930) Complex EM visit Add On G2211 Diagnoses Gastrocnemius strain, left S86.112A
[2025-03-15 13:06] VITALS: BMI 45.0
== END 2025-03-15 13:58 | disposition home or self-care (01) ==
PROVIDERS: PCP Physician Assistant; Visit Provider Physician Assistant
DX: S86.112A Strain of other muscle(s) and tendon(s) of posterior muscle group at lower leg level, left leg, initial encounter (principal)
CPT/HCPCS: 99213; G2211

== ENCOUNTER → 2025-03-15 12:56 | Outpatient (BNVA) | payer OTHER, BC, SELFPAY | PROVIDERS: PCP Physician Assistant; Visit Provider Physician Assistant | DX: S86.112A Strain of other muscle(s) and tendon(s) of posterior muscle group at lower leg level, left leg, initial encounter (principal); X50.1XXA Overexertion from prolonged static or awkward postures, initial encounter; Y93.89 Activity, other specified; Y92.69 Other specified industrial and construction area as the place of occurrence of the external cause; Y99.9 Unspecified external cause status | CPT/HCPCS: 99212 ==

== ENCOUNTER 2025-04-11 15:00 | Outpatient (RCR) | payer OTHER, BC, SELFPAY ==
--- NOTE | 2025-03-02 16:21 | MHC.PT.EP ---
[facility] [place] Office [place] Office [place] Office [address] [phone] F: [phone] F: [phone] F: [phone] F: [phone] Physical Therapy Plan of Care Date of Evaluation: 03/02/25 Date of Surgery: Diagnosis: LEFT gastrocnemius strain ( Dx) RS Assessment: Kyle Sher (:86) is a 39 y.o. male who is referred to PT by Radha Joe PA-C after a work-related injury with Dx of LEFT gastrocnemius strain. The strain is localized to medial gastroc muscle belly. Patient impairments include pain, bruising, limited ankle ROM, weakness in L ankle and knee, antalgic gait with use of tall walking boot. Patient current functional limitations are stair use, get in/out of bed, walking normally, work tasks (prolonged standing, bending, lifting).Patient will benefit from skilled PT to address aforementioned impairments and functional limitations to meet established goals. Frequency and Duration: The patient will be seen 2x/week for 4 weeks Short Term Goals: 2 weeks Patient demonstrates consistency and independence with HEP to self manage symptoms. Residential Goals: 4 weeks Patient present with increased L ankle DF 0 degrees to restore mobility to wean off tall walking boot. Patient presents with increased L ankle inv/ev 4/5 to be able to bend/squat to lift 10# from pallet height for work tasks. Treatment Plan: Modalities to reduce pain, spasms and effusion. Manual therapy to restore motion and function. Therapeutic exercise to improve strength and flexibility. Neuromuscular re-education for posture and balance. Therapeutic activities to return to functional activities of daily living. Electronically signed by: Luz Rosas, PT, DPT Please sign and return to therapist. Thank you for your referral.
--- NOTE | 2025-04-11 16:05 | MHC.PT.DC ---
[facility] [place] Office [place] Office [place] Office [address] Garza [address] [phone] F: [phone] F: [phone] F: [phone] F: [phone] Physical Therapy Discharge Report Diagnosis: LEFT gastrocnemius strain ( Dx) RS Date of Surgery: Date of Evaluation: 03/02/25 Date of Discharge: 04/11/25 Treatments to Date: 12 Cancellations to Date: No Shows to Date: Discharge Status: Achieved Goals Improved Function Independent with HEP Discharge Summary: Kyle did well with PT interventions. He present with full ankle ROM and strength and reports being at his baseline walking and activity level. He feels ready for discharge. Electronically signed by: Luz Rosas, PT, DPT Please sign and return to therapist. Thank you for your referral.
== END 2025-04-11 16:06 | disposition home or self-care (01) ==
LOC: HO.PT 15:00
PROVIDERS: PCP Physician Assistant; Visit Provider Physician Assistant
DX: S86.112A Strain of other muscle(s) and tendon(s) of posterior muscle group at lower leg level, left leg, initial encounter (principal)
CPT/HCPCS: 97035; 97110; 97112; 97140; 97161; 97530

== ENCOUNTER 2025-04-26 11:30 | Outpatient (AMB) | payer OTHER, SELFPAY ==
--- NOTE | 2025-04-26 11:39 | MHC.OFFVIS ---
Intake Visit Reasons: OV- Strain of left calf muscle-4 WK follow up Intake Note: Kyle is a 39 year old male who presents today for a follow up visit for his gastrocnemius strain of left lower extremity, WC DOI: 02/09/25. AT his last visit he was advised to continue with physical therapy to work on motion, stretching heel cord stretching and strengthening exercises. He states that he is doing very well. He is finding it a little difficult going up and down the stairs, so he is using one stair at a time. Allergies No Known Allergies Allergy (Verified 04/26/25 11:49) HPI HPI OV- Strain of left calf muscle-4 WK follow up: Details: Mr. Jerica Sher is a 39-year-old male who presents to the office today for routine follow up of the gastroc strain that occurred while at work on 02/09/2025. At his last appointment the patient was instructed to remain out of work and continue to work with physical therapy with the goal of weaning him out of the boot as symptoms allow. He presents to the office today in a supportive walking shoe. He reports that he still has some calf pain with pushing off activities. Overall he is doing very well. [facility] Medical History Gallstone Sacrococcygeal pilonidal cyst Nephrolithiasis Surgical History History of excision of pilonidal cyst Family History Father No problems noted. Mother Medical history unknown Maternal Grandfather CAD (coronary artery disease) Social History Housing: House Alcohol intake: never Patient Tobacco Use Status: Never used Tobacco e-Cigarette/Vaping Use: Never Used Second Hand Smoke Exposure: No service: No Current occupational status: employed Current occupation: [employer] Current occupational exposures/hazards: No Cognitive needs: No Hearing needs: No Vision needs: No Review of Systems Const All systems reviewed & are unremarkable except as noted in HPI and below Physical Exam Extrem Other: Left calf normal to inspection with minimal tenderness over the medial aspect of the muscle belly of the gastroc. Able to demonstrate dorsiflexion, plantar flexion, pronation supination with no deficit. Sensation intact. NVI. Assessment & Plan Assessment & Plan (1) Gastrocnemius strain, left: Code(s): S86.112A - Strain of other muscle(s) and tendon(s) of posterior muscle group at lower leg level, left leg, initial encounter Category: Medical Plan Mr. Jerica Sher is a 39-year-old male who presents to the office today for routine follow up of the gastroc strain that occurred while at work on 02/09/2025. At his last appointment the patient was instructed to remain out of work and continue to work with physical therapy with the goal of weaning him out of the boot as symptoms allow. He presents to the office today in a supportive walking shoe. He reports that he still has some calf pain with pushing off activities. Overall he is doing very well. While in the office today, we discussed continuation of physical therapy until all appointments have been attended and goals have been achieved. Patient may return back to work full-time regular duty beginning 05/07/2025. He will follow up with Orthopedics p.r.n., sooner if needed. Coding Level of Care Code Est Pt Level 3 (90058) Diagnoses Gastrocnemius strain, left S86.112A
== END 2025-04-26 11:57 | disposition home or self-care (01) ==
LOC: HO.HOS 11:31
PROVIDERS: PCP Physician Assistant; Visit Provider Physician Assistant
DX: S86.112A Strain of other muscle(s) and tendon(s) of posterior muscle group at lower leg level, left leg, initial encounter (principal)
CPT/HCPCS: 99213

== ENCOUNTER → 2025-04-26 11:30 | Outpatient (BNVA) | payer OTHER, BC, SELFPAY | PROVIDERS: PCP Physician Assistant; Visit Provider Physician Assistant | DX: M79.662 Pain in left lower leg (principal); S86.112D Strain of other muscle(s) and tendon(s) of posterior muscle group at lower leg level, left leg, subsequent encounter | CPT/HCPCS: 99212 ==

== ENCOUNTER 2025-07-09 15:45 | Outpatient (REF) | payer BC, SELFPAY ==
--- NOTE | ~2025-07-09 | US_ITS ---
EXAMINATION: US RETROPERITONEAL LIMITED (RENAL ONLY) CLINICAL INFORMATION: Kidney stone. COMPARISON: Previous CT of the abdomen and pelvis most recent May 2023 and renal ultrasound most recently June 2024 TECHNIQUE: Real-time imaging of the kidneys. Limited exam due to body habitus. FINDINGS: RIGHT KIDNEY: 12 x 6.2 x 5.6 cm (SAG x AP x TRV). The kidney is normal in size, contour, and echogenicity. Renal cortical thickness is normal. Small stone in the lower pole measuring 6 x 5 x 7 mm. No focal parenchymal lesions. No hydronephrosis. LEFT KIDNEY: 11.5 x 5.7 x 5.3 cm (SAG x AP x TRV). The kidney is normal in size, contour, and echogenicity. Renal cortical thickness is normal. No calculi or focal parenchymal lesions. No hydronephrosis. US/US renal BI IMPRESSION: Limited exam. Small right lower pole renal stone similar to previous exam. No left renal stone or hydronephrosis. Electronically signed by: Rachael Vega MD 07/09/2025 04:15 PM EST
== END 2025-07-09 15:46 | disposition home or self-care (01) ==
LOC: HO.US 15:45
PROVIDERS: PCP Internal Medicine; Visit Provider Urology
DX: N20.0 Calculus of kidney (principal)
CPT/HCPCS: 76775

== ENCOUNTER → 2025-07-09 15:48 | Outpatient (BNV) | payer BC, SELFPAY | PROVIDERS: PCP Internal Medicine; Visit Provider Radiology Diagnostic Radiology | DX: N20.0 Calculus of kidney (principal) | CPT/HCPCS: 76775 ==

== ENCOUNTER 2025-07-12 15:38 | Outpatient (AMB) | payer BC, SELFPAY ==
--- NOTE | 2025-07-12 16:03 | MHC.PC.OV ---
Vital Signs 07/12/25 16:04 Height 5 ft 9 in Weight 321 lb 2 oz BMI 47.4 BP 110/80 Blood Pressure Location Lt brachial Position Sitting Pulse 98 Pulse Source Pulse Oximeter Temp 97.3 F Temp Source Temporal Artery Scan Pulse Oximetry (%) 97 Oxygen Delivery Method Room Air Intake Visit Reasons: Annual Exam Intake Note: Patient is here today for a physical. Clinical Dermatologist Required: No Animal Tech: Not Required per policy Accompanied by: Self / Same As Patient Allergies No Known Allergies Allergy (Verified 07/12/25 16:35) Medication List - Last Reconciled 07/12/25 by Dell Gold PA-C ketorolac 10 mg PO Q6H PRN pyridoxine (vitamin B6) 100 mg PO DAILY Tobacco use date assessed: 07/12/25 Dental Screening Dental Screen Date: 02/12/25 HPI Annual Exam HPI Details Patient is a 39-year-old male here today for an annual physical. PATIENT HAS A PAST MEDICAL HISTORY SIGNIFICANT FOR BORDERLINE HIGH CHOLESTEROL, ASTHMA, class 3 OBESITY, Concerns-> For the past two to three months, he has experienced bilateral hand numbness and excruciating pain that awakens him at night. The symptoms include tingling, difficulty closing his hands completely, and episodes where he cannot feel buttons while working. Symptoms are also triggered by driving. The patient tried wearing a wrist splint at night, but it cut off circulation and caused his arm to turn purple and become super painful. .. Nephrolithiasis: Patient followed by Urology and has had a recent renal ultrasound in his waiting radiologist read out on this. He has not had any renal colic episodes for quite some time now. .. class 3 Obesity: Unfortunately has gained a few lb since last office visit. He does understand his BMI is over 40. He reports he has been a bit inactive due to having a gastrocnemius tear and without of work for 3 months. The patient's weight is 320, which is an increase. He has tried to eat better, but his weight has not decreased. He reports snoring heavily, described as like a livestock trucker. .. Asthma: Asthma has not been a regular problem for him. Has not had to use his albuterol inhaler at all. Reports his asthma exacerbates when he gets a cold. .. Borderline high cholesterol : Most recent fasting lipid panel showing borderline high total cholesterol. Has been making lifestyle modifications and has lost weight reduce his cholesterol Vaccine: Declines COVID , Declines FLu vaccine , needs tetanus those considering at this time [facility] Medical History Gallstone Sacrococcygeal pilonidal cyst Nephrolithiasis Surgical History History of excision of pilonidal cyst Family History Father No problems noted. Mother Medical history unknown Maternal Grandfather CAD (coronary artery disease) Social History Housing: House Alcohol intake: never Patient Tobacco Use Status: Never used Tobacco e-Cigarette/Vaping Use: Never Used Second Hand Smoke Exposure: No service: No Current occupational status: employed Current occupation: [employer] Current occupational exposures/hazards: No Cognitive needs: No Hearing needs: No Vision needs: No Questionnaire PHQ-9 Over the last 2 weeks, how often have you been bothered by any of the following problems? 1. Little interest or pleasure in doing things: not at all 2. Feeling down, depressed, or hopeless: not at all 3. Trouble falling or staying asleep, or sleeping too much: several days 4. Feeling tired or having little energy: several days 5. Poor appetite or overeating: several days 6. Feeling bad about yourself - or that you are a failure or have let yourself or your family down: not at all 7. Trouble concentrating on things, such as reading the newspaper or watching television: not at all 8. Moving or speaking so slowly that other people could have noticed. Or the opposite - being so fidgety or restless that you have been moving around a lot more than usual: not at all 9. Thoughts that you would be better off or of hurting yourself in some way: not at all Total score: 3 Depression Screening Interpretation: Positive Depression Screening Follow-up: Existing condition and Declines treatment Depression Screening Done: Yes [id number] - PHQ-9 Billing: Patient declined-do not bill Source: Developed by Drs. Michael Phelan, Stephanie B.Tio Skinner and colleagues, with an educational alvin from [email or web address]. Thrive Questionnaire Date Thrive assessed: 07/12/25 I am a: Patient What is your living situation today?: I have a steady place to live Within the past 12 months, did the food you bought not last and you didn't have the money to get more?: I choose not to answer this question Within the past 12 months, did you worry whether your food would run out before you got money to buy more?: I choose not to answer this question Do you have trouble paying for medicines?: I choose not to answer this question Do you have trouble getting transportation to medical appointments?: No Do you have trouble paying your heating and electricity bill?: I choose not to answer this question Do you have trouble taking care of your child, family member or friend?: No Do you have trouble with day-to-day activities such as bathing, preparing meals, shopping, managing finances, etc.?: No Are you currently unemployed and looking for a job?: No Are you interested in more education?: No Please select the resources that you would like help with: Utilities Currently or been in a relationship where the following occur: No concerns reported THRIVE Score: 0 AUDIT C Alcohol Use Questionnaire (AUDIT-C) 1. How often do you have a drink containing alcohol?: Never Total Score: 0 KEITH-7 AMB Questionnaire KEITH-7 Date KEITH - 7 assessed: 07/12/25 Feeling nervous, anxious, or on edge: 1 = Several days Not being able to stop or control worryin = Not at all Worrying too much about different things: 0 = Not at all Trouble relaxin = Not at all Being so restless that it is hard to sit still: 0 = Not at all Becoming easily annoyed or irritable: 0 = Not at all Feeling afraid as if something awful might happen: 1 = Several days Total KEITH-7 score (0-4 normal; 5-9 mild; 10-14 moderate; 15-21 severe): 2 Source: Developed by Drs. Michael Phelan, Tio Cuba and colleagues, with an educational alvin from [email or web address]. Review of Systems Const Denies body aches, Denies chills, Denies excessive sweating, Denies fatigue, Denies fever(s) and Denies headache(s) Eyes Denies blurry vision ENT Denies dysphagia, Denies vertigo, Denies dizziness, Denies headache(s), Denies hearing loss and Denies tinnitus Card Denies chest pain, Denies chest pain with activity, Denies syncope, Denies irregular heart rhythm and Denies dyspnea Resp Denies chest congestion, Denies cough, Denies hemoptysis, Denies dyspnea and Denies wheezing GI Denies abdominal pain, Denies melena, Denies hematochezia, Denies coffee ground emesis, Denies dysphagia, Denies diarrhea, Denies nausea and Denies vomiting Denies difficulty urinating, Denies dysuria, Denies urinary frequency, Denies urinary hesitancy and Denies urinary urgency Musc Denies arthralgias, Denies limited range of motion, Denies muscle cramps and Denies muscle weakness Skin/Breast Denies rash and Denies skin ulcer Neuro Denies Abnormal speech present, Denies confusion, Denies vertigo, Denies dizziness, Denies syncope, Denies headache(s), Denies memory loss and Denies seizure-like activity Psych Denies anxiety, Denies confusion, Denies depression, Denies memory loss, Denies panic attacks and Denies paranoia Endo Denies excessive sweating, Denies fatigue, Denies flushing, Denies polydipsia and Denies polyuria Aller/Immun Denies wheezing Physical exam (Primary Care) Vital Signs: Last Vital Signs Temp 97.3 F 07/12/25 16:04 Pulse 98 07/12/25 16:04 BP 110/80 07/12/25 16:04 Pulse Ox 97 07/12/25 16:04 Oxygen Delivery Method Room Air 07/12/25 16:04 BMI result Body Mass Index 47.4 BMI Assessment/Plan discussion: High BMI High, discussed plan: lifestyle, weight reduction, dietary and physical activity Tobacco/Smoking Status: Tobacco use Status Tobacco use date assessed 07/12/25 07/12/25 16:09 Patient Tobacco Use Status Never used Tobacco 07/12/25 16:09 Tobacco use type 02/13/25 08:49 e-Cigarette/Vaping Use Never Used 07/12/25 16:09 PHQ-9: PHQ-9 Score PHQ-9: Total score 3 07/12/25 16:09 Depression Screening Interpretation: Positive Depression Screening Follow-up: Existing condition and Declines treatment Thrive Assessment: Date of Thrive Assessment Date Thrive assessed 07/12/25 07/12/25 16:09 Currently or been in a relationship where the following occur: No concerns reported Const Other: Morbidly obese General: cooperative, comfortable, no acute distress, alert and awake; No confusion Orientation/consciousness: oriented to person, oriented to place, patient oriented x3 and No confusion HENMT Head: Yes normocephalic Ears: external ears normal and TM's normal bilaterally Face and sinus: No sinus tenderness Mouth: Normal oral and palatal mucosa present and tongue normal Teeth and gingiva: dentition normal and gingiva normal Throat: Yes posterior oropharynx normal, Yes tonsils normal and Yes uvula midline Eyes Conjunctivae: conjunctivae normal Sclerae: sclerae normal Pupils: Equal, round and reactive pupils present EOM: EOMs intact bilaterally Direct Ophthalmoscopy: No no photophobia Neck Neck: Yes no lymphadenopathy, No tender and Yes no JVD Thyroid: Thyroid normal Carotids: no bruits Chest Chest palpation & inspection: no tenderness Resp Effort & Inspection: normal respiratory effort, no audible wheezes, not labored and no stridor Auscultation: no crackles, no rales, no rhonchi and no wheezes Cardio Jugular venous distension: no JVD Rate: regular rate, not bradycardic and not tachycardic Rhythm: regular rhythm Bruits: no carotid bruits Peripheral pulses: Peripheral pulses 2+ throughout GI Inspection: Yes normal to inspection, No abdominal wall ecchymosis and No visible herniation Palpation (GI): Soft to palpation, nontender, no guarding, not rigid and No hepatosplenomegaly present Auscultation: normoactive bowel sounds General: Yes no CVA tenderness Back/Spine/Pelvis Back: no CVA tenderness and No back tenderness Cervical Spine: cervical ROM normal Thoracic/Lumbar Spine: thoracic and lumbar spine normal to inspection, straight leg raise negative bilaterally, No thoraco-lumbar ROM limited and No lumbar spinal tenderness Skin Lesions: no lesions Rashes: no rashes Wounds: no wounds Neuro General: oriented to person, oriented to place, patient oriented x3, CN's II-XI intact bilaterally and No confusion Cranial nerves: Yes Equal, round and reactive pupils present and Yes Normal accommodation reflex present Cognition (Neuro): normal cognition Speech: No Abnormal speech present Gait exam (Neuro): Normal gait present Motor exam (neuro): 5/5 motor strength present throughout Extrem Right upper extremity: full ROM; no cyanosis Left upper extremity: full ROM; no cyanosis Right lower extremity: no edema Left lower extremity: no edema Psych Appearance: grossly normal Mental Status: mental status grossly normal Affect: normal affect Attitude: cooperative Thought process: Normal thought process present Coding Level of Care Code Est Pt Prev Care [id number]([id number]) Diagnoses Annual physical exam Z00.00 Paresthesia of hand, bilateral R20.2 Borderline high cholesterol E78.9 Class 3 obesity E66.813 ELENA (obstructive sleep apnea) G47.33 Assessment & Plan Assessment & Plan (1) Annual physical exam: Code(s): Z00.00 - Encounter for general adult medical examination without abnormal findings Category: Medical Plan: As per HPI (2) Paresthesia of hand, bilateral: Code(s): R20.2 - Paresthesia of skin Category: Medical Plan: For the patient's symptoms of bilateral hand numbness and pain, which are highly suggestive of carpal tunnel syndrome, an EMG nerve test will be ordered to confirm the diagnosis. This is indicated given the 3-month duration of symptoms, occupational risks, and failure of conservative measures like wrist splinting. If the EMG confirms carpal tunnel syndrome, a referral will be made to an orthopedic hand surgeon for a potential nerve procedure. (3) Borderline high cholesterol: Code(s): E78.9 - Disorder of lipoprotein metabolism, unspecified Category: Medical Plan: Patient has a history of borderline high cholesterol, he reports he has been trying to eat better, will recheck fasting lipid panel to ensure stable total cholesterol and LDL. (4) Class 3 obesity: Code(s): E66.813 - Obesity, class 3 Category: Medical Plan: Patient has gained weight since last office visit, he does report some in activity due to calf tear recently. (5) ELENA (obstructive sleep apnea): Code(s): G47.33 - Obstructive sleep apnea (adult) (pediatric) Category: Medical Plan: Regarding the patient's weight gain and snoring, there is a suspicion for obstructive sleep apnea (ELENA). A home sleep study was offered to establish a diagnosis, which is necessary to determine eligibility for weight loss medications such as Zepbound. The patient expressed hesitation due to claustrophobia but will consider the test and can message through the patient portal to proceed. Orders: Orders NE electromyogram (EMG) Today R20.2 - Paresthesia of skin Testosterone, Free/Total Today E66.813 - Obesity, class 3 Lipid Panel Today E78.9 - Disorder of lipoprotein metabolism, unspecified Complete Blood Count no Diff Today E78.9 - Disorder of lipoprotein metabolism, unspecified Comprehensive [place]. Panel Fast Today E78.9 - Disorder of lipoprotein metabolism, unspecified NE nerve conduction velocity Today R20.2 - Paresthesia of skin TSH reflex Free T4 Today E66.813 - Obesity, class 3
[2025-07-12 16:04] VITALS: BP 110/80; PULSE 98; TEMP 36.3; O2SAT 97; BMI 47.4
== END 2025-07-12 16:50 | disposition home or self-care (01) ==
LOC: HO.HMCH 15:39
PROVIDERS: PCP Physician Assistant; Visit Provider Physician Assistant
DX: Z00.00 Encounter for general adult medical examination without abnormal findings (principal); R20.2 Paresthesia of skin; E66.813 Obesity, class 3; Z68.42 Body mass index [BMI] 45.0-49.9, adult; E78.9 Disorder of lipoprotein metabolism, unspecified; G47.33 Obstructive sleep apnea (adult) (pediatric)

== ENCOUNTER 2025-07-14 07:12 | Outpatient (REF) | payer BC, SELFPAY ==
[2025-07-14 08:47] LABS: Hematocrit 45.8 % (42.0-52.0); Hemoglobin 14.8 g/dl (14.0-18.0); Mean Corpuscular HGB Conc 32.3 g/dl (31.0-36.0); Mean Corpuscular Hemoglobin 27.6 pg (27.0-33.0); Mean Corpuscular Volume 85.4 fL (80.0-98.0); NRBC Abs Auto 0.000 X10*3/uL (0.0-0.012); NRBC Pct Auto 0.0 /100WBC (0.0-0.2); Platelet Count 285 X10*3/uL (160-400); Red Blood Count 5.36 X10*6/uL (4.60-5.80); White Blood Count 9.0 X10*3/uL (4.8-10.8)
[2025-07-14 09:17] LABS: Alanine Aminotransferase 85 U/L (0-40); Albumin Level 4.7 g/dL (3.5-5.0); Alkaline Phosphatase 98 U/L (39-117); Anion Gap 13 (12-20); Aspartate Amino Transferase 50 U/L (5-37); Blood Urea Nitrogen 11 mg/dL (9-16); Calcium 9.4 mg/dL (8.4-10.2); Carbon Dioxide 26 mmol/L (22-29); Chloride 104 mmol/L (96-108); Cholesterol 232 mg/dL (<200); Estimated Glomerular Filt Rate > 60; HDL Cholesterol 37 mg/dL (>40); Potassium 3.9 mmol/L (3.3-5.1); Sodium 139 mmol/L (135-145); Total Protein 8.7 g/dL (6.5-8.0); Triglycerides 85 mg/dL (<150)
== END 2025-07-14 07:13 | disposition home or self-care (01) ==
LOC: HO.LAB 07:12
PROVIDERS: PCP Physician Assistant; Visit Provider Physician Assistant
DX: E66.813 Obesity, class 3 (principal); E78.9 Disorder of lipoprotein metabolism, unspecified; Z13.29 Encounter for screening for other suspected endocrine disorder
CPT/HCPCS: 36415; 80053; 80061; 84402; 84403; 84443; 85027